=== PATIENT | female | born 1945 | race Caucasian/White ===

== ENCOUNTER 2019-05-06 22:38 | Inpatient (IN) | payer OTHER ==
[2019-05-06 23:04] VITALS: BMI 22.8
[2019-05-06] MEDS ORDERED: HALOPERIDOL LACTATE 5 MG/ML IM ONE (23:24)
[2019-05-06] MEDS ORDERED: HALOPERIDOL LACTATE 5 MG/ML ONE (23:24)
[2019-05-06] MEDS ORDERED: LORazepam 2 MG/ML SDV VIAL ONE (23:25)
[2019-05-06 23:57] LABS: BASO % 0.1 % (0-2.0); EOS % 0.5 % (0-4.5); HEMATOCRIT 25.8 % (32.4-45.2); HEMOGLOBIN 8.6 GM/dL (10.7-15.3); LYMPH % 16.7 % (8-40); MCH 33.7 pg (25.7-33.7); MCHC 33.3 g/dl (32.0-36.0); MEAN CELL VOLUME 101.2 fl (80-96); MEAN PLT VOLUME 10.2 fl (7.5-11.1); NEUT % 72.7 % (42.8-82.8); PLATELET COUNT 208 K/MM3 (134-434); RBC 2.55 M/mm3 (3.60-5.2); RDW 13.7 % (11.6-15.6); WHITE BLOOD COUNT 7.9 K/mm3 (4.0-10.0)
[2019-05-07 00:10] LABS: INR 1.05 (0.83-1.09); PROTHROMBIN TIME (PATIENT) 12.4 SEC (9.7-13.0)
[2019-05-07 00:12] LABS: ACTIVATED PTT 35.3 SECONDS (25.2-36.5)
[2019-05-07 00:19] LABS: ALBUMIN 2.9 g/dl (3.4-5.0); BILIRUBIN,TOTAL 0.8 mg/dL (0.2-1); BLOOD UREA NITROGEN 30.8 mg/dL (7-18); CALCIUM 9.7 mg/dL (8.5-10.1); CREATININE 3.5 mg/dL (0.55-1.3); POTASSIUM 5.1 mmol/L (3.5-5.1); TOT PROT 6.5 g/dl (6.4-8.2)
[2019-05-07] MEDS ORDERED: MAGNESIUM SULF 50% (8.12 MEQ/2 ML-1 GM VIAL) IVPB ONE (01:11)
--- NOTE | 2019-05-07 01:26 | PDOC ---
Documentation entered by Mikie Bowie SCRIBE, acting as scribe for Hermelinda Ghosh MD. Hermelinda Ghosh MD: This documentation has been prepared by the Jamir menon Xhesika, SCRIBE, under my direction and personally reviewed by me in its entirety. I confirm that the documentation accurately reflects all work, treatment, procedures, and medical decision making performed by me. History of Present Illness - General Chief Complaint: Pain, Acute Stated Complaint: FALL History Source: Patient Exam Limitations: No Limitations - History of Present Illness Initial Comments: 05/06/19 22:49 The patient is a 74 year old female with a significant past medical history of HTN, COPD, bipolar, hearing loss, who presents to the ED from [facility] for back pain, R hip pain and R thigh pain s/p fall. As per [facility] patient was found on the floor by staff. Pt has fallen 3x in the past week. The patient is a poor historian and unable to contribute to history. The patient denies chest pain, shortness of breath, headache and dizziness. Denies fever, chills, cough, nausea, vomiting, diarrhea and constipation. Allergies: NKDA Past History - Past Medical History Allergies/Adverse Reactions: Allergies Allergy/AdvReac Type Severity Reaction Status Date / Time No Known Allergies Allergy Verified 05/06/19 23:06 Home Medications: Ambulatory Orders Albuterol Sulfate Inhaler - [Ventolin HFA Inhaler -] 1 puff IH QID 05/06/19 Amlodipine Besylate 5 mg PO DAILY 05/06/19 Aspirin 81 mg PO DAILY 05/06/19 Calcitriol [Calcitriol -] 0.25 mcg PO Q2D 05/06/19 Carvedilol [Coreg -] 12.5 mg PO BID 05/06/19 Fluoxetine HCl 60 mg PO DAILY 05/06/19 Lamotrigine [Lamictal] 200 mg PO DAILY 05/06/19 Olanzapine [Zyprexa -] 5 mg PO DAILY 05/06/19 Sodium Chloride [Nasadrops] 15 ml NS DAILY 05/06/19 Umeclidinium Brm/Vilanterol Tr [Anoro Ellipta 62.5-25 Mcg INH] 1 each IH DAILY 05/06/19 Rosuvastatin [Crestor -] 5 mg PO HS #30 tablet 05/10/19 Review of Systems - Review of Systems Able to Perform ROS?: No (unable to obtain ) Is the patient limited Icelandic proficient: No *Physical Exam - Vital Signs Last Vital Signs Temp Pulse Resp BP Pulse Ox 97.1 F L 61 20 166/52 L 97 05/06/19 22:52 05/06/19 22:52 05/06/19 22:52 05/06/19 22:52 05/06/19 22:52 - Physical Exam 05/06/19 23:05 GENERAL: Awake, alert, and oriented x1 HEAD: No signs of trauma NECK: Normal ROM, supple, no lymphadenopathy, JVD, or masses LUNGS: Breath sounds equal, clear to auscultation bilaterally. No wheezes, and no crackles HEART: + cystolic murmur. Regular rate and rhythm, normal S1 and S2, rubs or gallops ABDOMEN: Flat, Soft, nontender, normoactive bowel sounds. No guarding, no rebound. No masses EXTREMITIES: + lumbar discomfort. No back pain. Unable to lift legs. no edema. No clubbing or cyanosis. No cords, erythema. SKIN: Warm, Dry, normal turgor, no rashes or lesions noted. Neurologic: positive: Alert (poor historian. only knows her name ) ED Treatment Course - LABORATORY CBC & Chemistry Diagram: 05/10/19 07:15 05/10/19 07:15 - ADDITIONAL ORDERS Additional order review: Laboratory Results 05/06/19 05/06/19 05/06/19 23:39 23:39 23:39 PT with INR 12.40 INR 1.05 PTT (Actin FS) 35.3 Sodium 135 L Potassium 5.1 Chloride 105 Carbon Dioxide 23 Anion Gap 7 L BUN 30.8 H Creatinine 3.5 H Est GFR (CKD-EPI)AfAm 14.03 Est GFR (CKD-EPI)NonAf 12.11 Random Glucose 112 H Calcium 9.7 Total Bilirubin 0.8 AST 88 H ALT 44 Alkaline Phosphatase 246 H Creatine Kinase 232 H Creatine Kinase Index 1.3 CK-MB (CK-2) 3.1 Troponin I < 0.02 Total Protein 6.5 Albumin 2.9 L 05/06/19 23:39 RBC 2.55 L MCV 101.2 H MCHC 33.3 RDW 13.7 MPV 10.2 Neutrophils % 72.7 Lymphocytes % 16.7 Monocytes % 10.0 Eosinophils % 0.5 Basophils % 0.1 - RADIOLOGY Radiology Studies Ordered: Category Date Time Status CERVICAL SPINE CT W/O CONTR [CT] Stat CT Scan 05/07/19 00:[address] WITHOUT CONTRAST [CT] Stat CT Scan 05/07/19 00:01 Taken CHEST X-RAY PORTABLE* [RAD] Stat Radiology 05/07/19 00:01 Taken HIP & PELVIS-RIGHT [RAD] Stat Radiology 05/07/19 00:01 Taken - Medications Given in the ED: ED Medications Discontinued Medications Generic Name Dose Route Start Last Admin Trade Name Freq PRN Reason Stop Dose Admin Haloperidol 5 mg 05/06/19 23:24 05/06/19 23:35 Haldol Injection (Fast Acting) - IM 05/06/19 23:25 5 mg ONCE ONE Administration Lorazepam 2 mg 05/06/19 23:23 05/06/19 23:35 Ativan Injection - IM 05/06/19 23:24 2 mg ONCE ONE Administration Medical Decision Making - Medical Decision Making 05/07/19 01:19 74 yo female BIBA from [facility] after being found on the floor. She is a poor historian but alert and conversant pt had c/o right femur pain, xray ordered and no femur fracture was seen pt is anemia and so stool hemoccult obtained And it was negative 05/07/19 01:53 CAT scan of the head - showed a mild right frontal scalp edema without skull fracture or intracranial hemorrhage CAT scan cervical spine - is negative for fracture or prevertebral soft tissue swelling, degenerative changes in C2-C4 Chest x-ray shows chronic interstitial lung disease UA is negative Troponin is negative Review of her chemistry shows a creatinine of 3.5 and in her papers from [facility] states that she has chronic kidney disease 05/07/19 02:16 05/07/19 02:19 Plan patient was signed out to Dr. Alexis team for admission to OBS telemetry Discharge - Discharge Information Problems reviewed: Yes Clinical Impression/Diagnosis: CKD (chronic kidney disease) Qualifiers: Chronic kidney disease stage: unspecified stage Qualified Code(s): N18.9 - Chronic kidney disease, unspecified Back pain Qualifiers: Back pain location: back pain in other location Chronicity: unspecified Qualified Code(s): M54.89 - Other dorsalgia HTN (hypertension) Qualifiers: Hypertension type: unspecified Qualified Code(s): I10 - Essential (primary) hypertension Condition: Stable Disposition: HOME - Follow up/Referral - Patient Discharge Instructions - Post Discharge Activity
[2019-05-07] MEDS ORDERED: MAGNESIUM 1GM/D5W - 1 GM/100 ML IVPB IVPB ONE (01:31)
[2019-05-07 01:39] LABS: EPI CELLS 5.3 /HPF (0-5/HPF); HYALINE CASTS 6 /lpf (0-8); PH,URINE 5.5 (5.0-8.0); URINE APPEARANCE CLEAR; URINE BACTERIA 0.5 /hpf (NEGATIVE); URINE BILIRUBIN NEGATIVE (NEGATIVE); URINE COLOR YELLOW; URINE GLUCOSE (UA) NEGATIVE (NEGATIVE); URINE KETONE NEGATIVE (NEGATIVE); URINE LEUK ESTERASE NEGATIVE (NEGATIVE); URINE NITRITE NEGATIVE (NEGATIVE); URINE PROTEIN 1+ (NEGATIVE); URINE RBC 1 /hpf (0-4); URINE WBC 2 /hpf (0-5)
--- NOTE | 2019-05-07 03:25 | PN ---
Teaching Attending Note Name of Resident: Vilma Rangel ATTENDING PHYSICIAN STATEMENT I saw and evaluated the patient. I reviewed the resident's note and discussed the case with the resident. I agree with the resident's findings and plan as documented. SUBJECTIVE: 74 yo female BIBA from [facility] after being found on the floor. Was initially complaining of right femur pain, patient is a poor historian but is Awake and alert. OBJECTIVE: Last Vital Signs Temp Pulse Resp BP Pulse Ox 97.1 F L 61 20 166/52 L 97 05/06/19 22:52 05/06/19 22:52 05/06/19 22:52 05/06/19 22:52 05/06/19 22:52 GENERAL: Well developed, well nourished. Awake and alert. No acute distress. HEENT: Normocephalic, atraumatic. PERRLA, EOMI. No conjunctival pallor. Sclera are non- icteric. Moist mucous membranes. Oropharynx is clear. NECK: Supple. Full ROM. No JVD. Carotid pulses 2+ and symmetric, without bruits. No thyromegaly. No lymphadenopathy. CARDIOVASCULAR: Regular rate and rhythm. No murmurs, rubs, or gallops. Distal pulses are 2+ and symmetric. PULMONARY: No evidence of respiratory distress. Lungs clear to auscultation bilaterally. No wheezing, rales or rhonchi. ABDOMINAL: Soft. Non-tender. Non-distended. No rebound or guarding. No organomegaly. Normoactive bowel sounds. MUSCULOSKELETAL Normal range of motion at all joints. No bony deformities or tenderness. No CVA tenderness. EXTREMITIES: Bilateral lower extremity edema, Exquisite tenderness to palpation of right thigh SKIN: Warm and dry. Normal capillary refill. No rashes. No jaundice. PSYCHIATRIC: Cooperative. Good eye contact. Appropriate mood and affect. Abnormal Lab Results 05/06/19 05/06/19 05/06/19 23:39 23:39 23:39 RBC 2.55 L Hgb 8.6 L Hct 25.8 L MCV 101.2 H Sodium 135 L Anion Gap 7 L BUN 30.8 H Creatinine 3.5 H Random Glucose 112 H AST 88 H Alkaline Phosphatase 246 H Creatine Kinase 232 H Albumin 2.9 L Urine Protein Urine Blood 05/07/19 01:25 RBC Hgb Hct MCV Sodium Anion Gap BUN Creatinine Random Glucose AST Alkaline Phosphatase Creatine Kinase Albumin Urine Protein 1+ H Urine Blood 1+ H Imaging studies were reviewed CT of the head - showed a mild right frontal scalp edema without skull fracture or intracranial hemorrhage CT of cervical spine - is negative for fracture or prevertebral soft tissue swelling, degenerative changes in C2-C4 Chest x-ray was reviewed by me, showed overpenetration, severe osteoporotic changes, possible interstitial chronic changes ASSESSMENT AND PLAN: 74-year-old woman status post fall with right frontal scalp edema, no fractures appreciated suspect possible syncope. First time in this hospital. Telemetry observation Fall precautions Bedrest follow-up official imaging reads Pain control with Tylenol Transthoracic echo Physical therapy evaluation Check orthostatics pelvic ct To rule out fracture of right femur Lower extremity Doppler ultrasound to rule out DVT given swelling #JEREMÍAS versus CKDno prior renal parameters for comparison. CK was mildly elevated and do not suspect significant rhabdo. Renal sonogram Avoid nephrotoxins I's and O's Daily weights IV fluid hydration #Severe macrocytic anemia TSH Vitamin B12 Iron studies Ferritin Red blood smear #Transaminitis Liver sonogram Hepatitis B and hepatitis C serologies DVT prophylaxisSCDs
--- NOTE | 2019-05-07 03:52 | HP ---
CHIEF COMPLAINT: right femur pain s/p fall PCP: Dr Iyer HISTORY OF PRESENT ILLNESS: Pt is uncooperative and only moans to pain on palpation. History is as per ED notes 74 y/o female with a significant past medical history of HTN, COPD, bipolar, hearing loss, who presents to the ED from [facility] for back pain, R hip pain and R thigh pain s/p fall. As per [place] patient was found on the floor by staff. Pt has fallen 3x in the past week. The patient is a poor historian and unable to contribute to history ER course was notable for: (1)CBC with anemia 8.6/25.8 MCV 101.2, CMP BUN 30.8/cr 3.5 PT/INR 12.4/1.05, AST 88 ALP 246 CK 232 albumin 2.9 (2) UA neg, FOBT neg, Haloperidol and ativan (3) CT of the head - showed a mild right frontal scalp edema without skull fracture or intracranial hemorrhage CT of cervical spine - is negative for fracture or prevertebral soft tissue swelling, degenerative changes in C2-C4 all Xray from [facility] [employer] [facility] negative for acute fracture. Recent Travel: unobtainable PAST MEDICAL HISTORY: as above PAST SURGICAL HISTORY: unobtainable Social History:unobtainable Allergies No Known Allergies Allergy (Verified 05/06/19 23:06) HOME MEDICATIONS: Home Medications Medication Instructions Recorded Acetaminophen 650 mg PO QID PRN 05/06/19 Albuterol Sulfate Inhaler - 1 - 2 inh PO Q4H 05/06/19 [Ventolin Hfa Inhaler -] Albuterol Sulfate Inhaler - 1 puff IH QID 05/06/19 [Ventolin Hfa Inhaler -] Amlodipine Besylate 5 mg PO DAILY 05/06/19 Aspirin 81 mg PO DAILY 05/06/19 Calcitriol [Rocaltrol -] 0.25 mcg PO Q2D 05/06/19 Carvedilol [Coreg -] 12.5 mg PO BID 05/06/19 Fluoxetine HCl 60 mg PO DAILY 05/06/19 Lamotrigine [Lamictal] 200 mg PO DAILY 05/06/19 Olanzapine [Zyprexa -] 5 mg PO DAILY 05/06/19 Rosuvastatin Calcium [Crestor] 5 mg PO DAILY 05/06/19 Sodium Chloride [Nasadrops] 15 ml NS DAILY 05/06/19 Umeclidinium Brm/Vilanterol Tr 1 each IH DAILY 05/06/19 [Anoro Ellipta 62.5-25 Mcg INH] REVIEW OF SYSTEMS CONSTITUTIONAL: Absent: fever, chills, diaphoresis, generalized weakness, malaise, loss of appetite, weight change PHYSICAL EXAMINATION Vital Signs - 24 hr 05/06/19 22:52 Temperature 97.1 F L Pulse Rate 61 Respiratory 20 Rate Blood Pressure 166/52 L O2 Sat by Pulse 97 Oximetry (%) GENERAL: in mod distress. somnolent on H&P intake HEAD: Normal with no signs of trauma. EYES: sclera anicteric, conjunctiva clear. No lid lag. NECK: Normal range of motion, supple without lymphadenopathy, JVD. LUNGS: Breath sounds equal, clear to auscultation bilaterally. No wheezes, and no crackles. No accessory muscle use. HEART: Regular rate and rhythm, normal S1 and S2 with systolic 3/6 murmur in aortic and pulmonary region. ABDOMEN: Soft, nontender, not distended, normoactive bowel sounds, no guarding, no rebound, umbilical hernia near surgical ex lap scar . No hepatomegaly or splenomegaly. MUSCULOSKELETAL: Normal range of motion at all joints except in R hip with tenderness over right hip and thigh. No bony deformities or leg length discrepancy . No CVA tenderness. pain elicited on log role test. UPPER EXTREMITIES: 2+ pulses, warm, well-perfused. No cyanosis. No clubbing. No peripheral edema. LOWER EXTREMITIES: 2+ pulses, warm, well-perfused. No calf tenderness. No peripheral edema. SKIN: Warm, dry, normal turgor, bruise below right knee. Laboratory Results - last 24 hr 05/06/19 05/06/19 05/06/19 23:39 23:39 23:39 WBC 7.9 RBC 2.55 L Hgb 8.6 L Hct 25.8 L MCV 101.2 H MCH 33.7 MCHC 33.3 RDW 13.7 Plt Count 208 MPV 10.2 Absolute Neuts (auto) 5.8 Neutrophils % 72.7 Lymphocytes % 16.7 Monocytes % 10.0 Eosinophils % 0.5 Basophils % 0.1 Nucleated RBC % 0 PT with INR 12.40 INR 1.05 PTT (Actin FS) 35.3 Sodium 135 L Potassium 5.1 Chloride 105 Carbon Dioxide 23 Anion Gap 7 L BUN 30.8 H Creatinine 3.5 H Est GFR (CKD-EPI)AfAm 14.03 Est GFR (CKD-EPI)NonAf 12.11 Random Glucose 112 H Calcium 9.7 Total Bilirubin 0.8 AST 88 H ALT 44 Alkaline Phosphatase 246 H Creatine Kinase Creatine Kinase Index CK-MB (CK-2) Troponin I Total Protein 6.5 Albumin 2.9 L Urine Color Urine Appearance Urine pH Ur Specific [place] Urine Protein Urine Glucose (UA) Urine Ketones Urine Blood Urine Nitrite Urine Bilirubin Urine Urobilinogen Ur Leukocyte Esterase Urine WBC (Auto) Urine RBC (Auto) Urine Casts (Auto) U Epithel Cells (Auto) U Sm Round Cell (Auto) Urine Bacteria (Auto) Stool Occult Blood 05/06/19 05/07/19 05/07/19 23:39 01:19 01:25 WBC RBC Hgb Hct MCV MCH MCHC RDW Plt Count MPV Absolute Neuts (auto) Neutrophils % Lymphocytes % Monocytes % Eosinophils % Basophils % Nucleated RBC % PT with INR INR PTT (Actin FS) Sodium Potassium Chloride Carbon Dioxide Anion Gap BUN Creatinine Est GFR (CKD-EPI)AfAm Est GFR (CKD-EPI)NonAf Random Glucose Calcium Total Bilirubin AST ALT Alkaline Phosphatase Creatine Kinase 232 H Creatine Kinase Index 1.3 CK-MB (CK-2) 3.1 Troponin I < 0.02 Total Protein Albumin Urine Color Yellow Urine Appearance Clear Urine pH 5.5 Ur Specific [place] 1.015 Urine Protein 1+ H Urine Glucose (UA) Negative Urine Ketones Negative Urine Blood 1+ H Urine Nitrite Negative Urine Bilirubin Negative Urine Urobilinogen 1.0 Ur Leukocyte Esterase Negative Urine WBC (Auto) 2 Urine RBC (Auto) 1 Urine Casts (Auto) 6 U Epithel Cells (Auto) 5.3 U Sm Round Cell (Auto) None Urine Bacteria (Auto) 0.5 Stool Occult Blood Negative ASSESSMENT/PLAN: 74 y/o female with a significant past medical history of HTN, COPD, bipolar, hearing loss, who presents to the ED from [facility] for back pain, R hip pain and R thigh pain s/p fall with evidence of right frontal scalp edema but no fractures possibly due to syncopal episode. Syncope Telemetry observation carotid U/S echo orthostatics vs Fall precautions Bedrest Fall possibly due to syncope Xray negative for gross fracture pt cont to moan on palpation and manipulation of R hip pain on log role test f/u official reads tylenol 650 prn for pain control Physical therapy evaluation Anemia with Macrocytosis FOBT neg basic anemia work up iron studies with ferritin retic count peripheral blood smear B12 and folate TSH JEREMÍAS versus CKD or acute on chronic? pt has mild Ck elevation at 232 per chart pt has history of CKD but no baseline Renal U/S NS@ 100 Avoid nephrotoxins I's and O's Daily weights R leg swelling duplex U/s to r/o DVT Transaminitis Liver U/S Hepatitis B and hepatitis C serologies monitor with cmp DVT ppx SCDs Visit type - Emergency Visit Emergency Visit: Yes ED Registration Date: 05/07/19 Care time: The patient presented to the Emergency Department on the above date and was hospitalized for further evaluation of their emergent condition. - New Patient This patient is new to me today: Yes Date on this admission: 05/07/19 - Critical Care Critical Care patient: No ATTENDING PHYSICIAN STATEMENT I saw and evaluated the patient. I reviewed the resident's note and discussed the case with the resident. I agree with the resident's findings and plan as documented. SUBJECTIVE: OBJECTIVE: ASSESSMENT AND PLAN:
[2019-05-07] MEDS: SODIUM CHLORIDE 1,000 ML IV SCH (04:49)
[2019-05-07] MEDS ORDERED: HALOPERIDOL DECANOATE 100 MG/ML IM ONE (06:28)
[2019-05-07] MEDS ORDERED: HALOPERIDOL LACTATE 5 MG/ML IM ONE (07:00)
[2019-05-07 07:09] LABS: BASO % 0.4 % (0-2.0); EOS % 0.9 % (0-4.5); HEMATOCRIT 24.5 % (32.4-45.2); HEMOGLOBIN 8.2 GM/dL (10.7-15.3); LYMPH % 22.3 % (8-40); MCH 33.7 pg (25.7-33.7); MCHC 33.6 g/dl (32.0-36.0); MEAN CELL VOLUME 100.5 fl (80-96); MEAN PLT VOLUME 10.2 fl (7.5-11.1); NEUT % 65.4 % (42.8-82.8); PLATELET COUNT 181 K/MM3 (134-434); RBC 2.44 M/mm3 (3.60-5.2); RDW 13.2 % (11.6-15.6); WHITE BLOOD COUNT 6.6 K/mm3 (4.0-10.0)
[2019-05-07] MEDS ORDERED: HALOPERIDOL LACTATE 5 MG/ML ONE (07:32)
[2019-05-07 07:52] LABS: ALBUMIN 2.8 g/dl (3.4-5.0); BILIRUBIN,TOTAL 0.8 mg/dL (0.2-1); BLOOD UREA NITROGEN 29.2 mg/dL (7-18); CALCIUM 9.7 mg/dL (8.5-10.1); CREATININE 3.4 mg/dL (0.55-1.3); MAGNESIUM 2.6 mg/dL (1.8-2.4); POTASSIUM 4.9 mmol/L (3.5-5.1); TOT PROT 6.2 g/dl (6.4-8.2)
--- NOTE | 2019-05-07 12:26 | EKG ---
Test Reason : Blood Pressure : / mmHG Vent. Rate : 064 BPM Atrial Rate : 064 BPM P-R Int : 142 ms QRS Dur : 092 ms QT Int : 500 ms P-R-T Axes : 056 007 060 degrees QTc Int : 515 ms NORMAL SINUS RHYTHM NONSPECIFIC ST AND T WAVE ABNORMALITY PROLONGED QT ABNORMAL ECG NO PREVIOUS ECGS AVAILABLE Confirmed by EDUARDO BEY MD ([id number]) on 05/07/2019 12:26:31 PM Referred By: Confirmed By:EDUARDO BEY MD
--- NOTE | 2019-05-07 12:52 | PN ---
Teaching Attending Note Name of Resident: Letty Clement ATTENDING PHYSICIAN STATEMENT I saw and evaluated the patient. I reviewed the resident's note and discussed the case with the resident. I agree with the resident's findings and plan as documented. SUBJECTIVE: Feels well. No chest pain/palpitations/dyspnea/lightheadedness. No fever/chills. OBJECTIVE: Afebrile, Hemodynamically Stable. Last Vital Signs Temp Pulse Resp BP Pulse Ox 97.1 F L 68 18 165/74 95 05/07/19 06:15 05/07/19 06:15 05/07/19 06:15 05/07/19 06:15 05/07/19 06:38 HEENT - Atraumatic Normocephalic. Heart - S1, S2 soft SM Lungs - clear to auscultation Abdomen- soft, non-tender. Bowel Sounds normal. Extremities - No edema, no calf tenderness. Neuro - AAO x 2. Tone/Power normal all extremities. Laboratory Results - last 24 hr 05/06/19 05/06/19 05/06/19 23:39 23:39 23:39 WBC RBC Hgb Hct MCV MCH MCHC RDW Plt Count MPV Absolute Neuts (auto) Neutrophils % Lymphocytes % Monocytes % Eosinophils % Basophils % Nucleated RBC % Retic Count PT with INR 12.40 INR 1.05 PTT (Actin FS) 35.3 Sodium 135 L Potassium 5.1 Chloride 105 Carbon Dioxide 23 Anion Gap 7 L BUN 30.8 H Creatinine 3.5 H Est GFR (CKD-EPI)AfAm 14.03 Est GFR (CKD-EPI)NonAf 12.11 Random Glucose 112 H Calcium 9.7 Phosphorus Magnesium Iron TIBC Iron Saturation Unsaturated IBC Ferritin Total Bilirubin 0.8 GGT AST 88 H ALT 44 Alkaline Phosphatase 246 H Creatine Kinase Creatine Kinase Index CK-MB (CK-2) Troponin I Total Protein 6.5 Albumin 2.9 L Vitamin B12 Serum Folate TSH Free T4 Urine Color Urine Appearance Urine pH Ur Specific [place] Urine Protein Urine Glucose (UA) Urine Ketones Urine Blood Urine Nitrite Urine Bilirubin Urine Urobilinogen Ur Leukocyte Esterase Urine WBC (Auto) Urine RBC (Auto) Urine Casts (Auto) U Epithel Cells (Auto) U Sm Round Cell (Auto) Urine Bacteria (Auto) Stool Occult Blood Blood Type O POSITIVE Antibody Screen Negative 05/06/19 05/06/19 05/07/19 23:39 23:39 01:19 WBC 7.9 RBC 2.55 L Hgb 8.6 L Hct 25.8 L MCV 101.2 H MCH 33.7 MCHC 33.3 RDW 13.7 Plt Count 208 MPV 10.2 Absolute Neuts (auto) 5.8 Neutrophils % 72.7 Lymphocytes % 16.7 Monocytes % 10.0 Eosinophils % 0.5 Basophils % 0.1 Nucleated RBC % 0 Retic Count PT with INR INR PTT (Actin FS) Sodium Potassium Chloride Carbon Dioxide Anion Gap BUN Creatinine Est GFR (CKD-EPI)AfAm Est GFR (CKD-EPI)NonAf Random Glucose Calcium Phosphorus Magnesium Iron TIBC Iron Saturation Unsaturated IBC Ferritin Total Bilirubin GGT AST ALT Alkaline Phosphatase Creatine Kinase 232 H Creatine Kinase Index 1.3 CK-MB (CK-2) 3.1 Troponin I < 0.02 Total Protein Albumin Vitamin B12 Serum Folate TSH Free T4 Urine Color Urine Appearance Urine pH Ur Specific [place] Urine Protein Urine Glucose (UA) Urine Ketones Urine Blood Urine Nitrite Urine Bilirubin Urine Urobilinogen Ur Leukocyte Esterase Urine WBC (Auto) Urine RBC (Auto) Urine Casts (Auto) U Epithel Cells (Auto) U Sm Round Cell (Auto) Urine Bacteria (Auto) Stool Occult Blood Negative Blood Type Antibody Screen 05/07/19 05/07/19 05/07/19 01:25 06:44 06:44 WBC 6.6 RBC 2.44 L Hgb 8.2 L Hct 24.5 L MCV 100.5 H MCH 33.7 MCHC 33.6 RDW 13.2 Plt Count 181 MPV 10.2 Absolute Neuts (auto) 4.3 Neutrophils % 65.4 Lymphocytes % 22.3 D Monocytes % 11.0 H Eosinophils % 0.9 Basophils % 0.4 D Nucleated RBC % 0 Retic Count PT with INR INR PTT (Actin FS) Sodium Potassium Chloride Carbon Dioxide Anion Gap BUN Creatinine Est GFR (CKD-EPI)AfAm Est GFR (CKD-EPI)NonAf Random Glucose Calcium Phosphorus Magnesium Iron TIBC Iron Saturation Unsaturated IBC Ferritin Total Bilirubin GGT AST ALT Alkaline Phosphatase Creatine Kinase Creatine Kinase Index CK-MB (CK-2) Troponin I Total Protein Albumin Vitamin B12 Serum Folate TSH Free T4 Urine Color Yellow Urine Appearance Clear Urine pH 5.5 Ur Specific [place] 1.015 Urine Protein 1+ H Urine Glucose (UA) Negative Urine Ketones Negative Urine Blood 1+ H Urine Nitrite Negative Urine Bilirubin Negative Urine Urobilinogen 1.0 Ur Leukocyte Esterase Negative Urine WBC (Auto) 2 Urine RBC (Auto) 1 Urine Casts (Auto) 6 U Epithel Cells (Auto) 5.3 U Sm Round Cell (Auto) None Urine Bacteria (Auto) 0.5 Stool Occult Blood Blood Type O POSITIVE Antibody Screen 05/07/19 05/07/19 05/07/19 06:44 06:44 06:44 WBC RBC Hgb Hct MCV MCH MCHC RDW Plt Count MPV Absolute Neuts (auto) Neutrophils % Lymphocytes % Monocytes % Eosinophils % Basophils % Nucleated RBC % Retic Count 3.33 H PT with INR INR PTT (Actin FS) Sodium 136 Potassium 4.9 Chloride 106 Carbon Dioxide 21 Anion Gap 9 BUN 29.2 H Creatinine 3.4 H Est GFR (CKD-EPI)AfAm 14.53 Est GFR (CKD-EPI)NonAf 12.54 Random Glucose 104 Calcium 9.7 Phosphorus 3.0 Magnesium 2.6 H Iron 62 TIBC 188 L Iron Saturation 32 Unsaturated IBC 126 L Ferritin 224.4 Total Bilirubin 0.8 GGT 514 H AST 81 H ALT 39 Alkaline Phosphatase 222 H Creatine Kinase Creatine Kinase Index CK-MB (CK-2) Troponin I Total Protein 6.2 L Albumin 2.8 L Vitamin B12 832 Serum Folate 6 TSH 6.56 H Free T4 1.33 Urine Color Urine Appearance Urine pH Ur Specific [place] Urine Protein Urine Glucose (UA) Urine Ketones Urine Blood Urine Nitrite Urine Bilirubin Urine Urobilinogen Ur Leukocyte Esterase Urine WBC (Auto) Urine RBC (Auto) Urine Casts (Auto) U Epithel Cells (Auto) U Sm Round Cell (Auto) Urine Bacteria (Auto) Stool Occult Blood Blood Type Antibody Screen Current Medications Generic Name Dose Route Start Last Admin Trade Name Freq PRN Reason Stop Dose Admin Sodium Chloride 1,000 mls @ 100 mls/hr 05/07/19 04:45 05/07/19 04:49 Normal Saline - IV 100 mls/hr [facility]IR [facility] Administration Home Medications Medication Instructions Recorded Acetaminophen 650 mg PO QID PRN 05/06/19 Albuterol Sulfate Inhaler - 1 - 2 inh PO Q4H 05/06/19 [Ventolin Hfa Inhaler -] Albuterol Sulfate Inhaler - 1 puff IH QID 05/06/19 [Ventolin Hfa Inhaler -] Amlodipine Besylate 5 mg PO DAILY 05/06/19 Aspirin 81 mg PO DAILY 05/06/19 Calcitriol [Rocaltrol -] 0.25 mcg PO Q2D 05/06/19 Carvedilol [Coreg -] 12.5 mg PO BID 05/06/19 Fluoxetine HCl 60 mg PO DAILY 05/06/19 Lamotrigine [Lamictal] 200 mg PO DAILY 05/06/19 Olanzapine [Zyprexa -] 5 mg PO DAILY 05/06/19 Rosuvastatin Calcium [Crestor] 10 mg PO DAILY 05/06/19 Sodium Chloride [Nasadrops] 15 ml NS DAILY 05/06/19 Umeclidinium Brm/Vilanterol Tr 1 each IH DAILY 05/06/19 [Anoro Ellipta 62.5-25 Mcg INH] ASSESSMENT AND PLAN: 74 year old female resident at [facility], HTN, COPD, Bipolar, hearing impairment, brought to ED after being found on the floor, poor historian , unable to recount iván-collapse events/symptoms, complains of R hip/leg pain. CT of the head - showed a mild right frontal scalp edema without skull fracture or intracranial hemorrhage CT of cervical spine - is negative for fracture or prevertebral soft tissue swelling, degenerative changes in C2-C4 CXR - no acute findings. Hip/Pelvis Xray - sclerotic density R intertrochanteric area 1. Syncope vs Fall ECG - NSR, QTc 515 Telemonitoring Orthostatic Vitals Echo Carotid Duplex PT 2. Sclerotic density R intertrochanteric area ?etiology CT Pelvis to exclude fracture. 3. JEREMÍAS vs CKD 3 - likely CKD. Review of external/PCP medical record pending to determine acuity/baseline Creat. Renal US pending. 4. Hepatic Dysfunction (elevated AST, GGT), Macrocytic Anemia - B12/Folate non- deficient. ?Alcohol Hx Abdominal US and Hepatitis panel pending. 5. HTN - continue Norvasc, Coreg. 6. COPD - Stable, no evidence of deocmpensation. On AnoroEllipta, Albuterol PRN. 7. Bipolar Disorder - Continue Olanzapine, Lamotrigine, Fluoxetine. 8. HLD - Will decrease Statin dose due to elevated LFTs. DVT Px - Heparin SQ.
--- NOTE | 2019-05-07 13:28 | ECHO ---
Name: ANU SALAZAR Exam:Adult Echocardiogram Study Date: 05/07/2019 10:32 AM Age: 74 yrs Height: 62 in Weight: 125 lb BSA: 1.6 m2 MMode/2D Measurements & Calculations IVSd: 0.98 cm Ao root diam: 2.0 cm LVIDd: 3.5 cm LA dimension: 2.8 cm LVIDs: 2.5 cm LVPWd: 0.95 cm LVPWs: 1.1 cm EDV(Teich): 50.5 ml ESV(Teich): 22.4 ml LVOT diam: 1.6 cm LAV (MOD-bp): 76.0 ml TAPSE: 2.0 cm RV S [place]: 14.8 cm/sec Doppler Measurements & Calculations MV V2 max: 128.2 cm/sec MV E max estevan: 77.0 cm/sec MV max P.6 mmHg MV A max estevan: 52.3 cm/sec MV V2 mean: 62.6 cm/sec MV E/A: 1.5 MV mean P.9 mmHg MV dec time: 0.23 sec MV V2 VTI: 31.5 cm Ao V2 max: 131.4 cm/sec LV V1 max P.6 mmHg Ao max P.9 mmHg LV V1 max: 80.0 cm/sec CAROLYNN(V,D): 1.2 cm2 MR max estevan: 624.2 cm/sec PA V2 max: 82.8 cm/sec MR max P.4 mmHg PA max P.7 mmHg Med Peak E' [place]: 4.7 cm/sec Med E/e': 16.5 Lat Peak E' [place]: 7.4 cm/sec Lat E/e': 10.4 Procedure A two-dimensional transthoracic echocardiogram with color flow and Doppler was performed. The study w as technically difficult with many images being suboptimal in quality. Left Ventricle The left ventricular size, thickness and function are normal. The left ventricular ejection fraction is normal. Left Ventricular Filling pattern is normal for age. Regional wall motion abnormalities cannot be excluded due to limited visualization. Right Ventricle The right ventricle is normal in size and function. Atria Normal left and right atrial size and function. Mitral Valve There is moderate mitral valve thickening. There is moderate mitral annular calcification. Calcified mitral apparatus. There is no mitral valve stenosis. There is moderate to severe mitral regurgitation. Tricuspid Valve The tricuspid valve is not well visualized. There is no tricuspid stenosis. There was insufficient TR detected to calculate RV systolic pressure. Aortic Valve The aortic valve is not well visualized. No hemodynamically significant valvular aortic stenosis. No aortic regurgitation is present. Pulmonic Valve The pulmonic valve is not well visualized. Great Vessels The aortic root is normal size. Pericardium/Pleura There is no pericardial effusion. Interpretation Summary The left ventricular size, thickness and function are normal The study was technically difficult with many images being suboptimal in quality. There is moderate to severe mitral regurgitation. There is moderate mitral valve thickening. There is moderate mitral annular calcification. Calcified mitral apparatus. There was insufficient TR detected to calculate RV systolic pressure. The left ventricular ejection fraction is normal. Regional wall motion abnormalities cannot be excluded due to limited visualization. Left Ventricular Filling pattern is normal for age. MD Eran Echols 05/07/2019 01:28 PM
--- NOTE | 2019-05-07 14:24 | PN ---
Physical Exam: SUBJECTIVE: Patient seen and examined. Unable to contribute to history as patient received Haldol overnight. Only mumbling words, poor historian. As per assisted living home patient has had multiple falls over the last two weeks after she was admitted there. She has been taken to [facility] for her previous falls and has been sent back as no acute problems were found. At baseline patient is able to verbalize commands, questions, and follow commands slowly. She is normally oriented x3. Assisted living home did not have any records regarding her baseline kidney function. OBJECTIVE: Vital Signs Period Temp Pulse Resp BP Sys/Marcelo Pulse Ox Last 24 Hr 97.1 F-97.1 F 61-68 18-20 165-166/52-74 95-97 GENERAL: somnolent, mumbling words HEAD: Normal with no signs of trauma. EYES: PERRL ENT: dry mucous membranes NECK: Trachea midline, supple LUNGS: Breath sounds equal, clear to auscultation bilaterally, no wheezes, no crackles, no accessory muscle use. HEART: Regular rate and rhythm, S1, S2 without murmur, rub or gallop. ABDOMEN: Soft, nontender, nondistended, normoactive bowel sounds, no guarding, no rebound MSK: Moderate tenderness to palpation over right hip EXTREMITIES: 2+ pulses, warm, well-perfused, no edema. NEUROLOGICAL: unable to asses. AAOx1. arousable to verbal and physical stimuli SKIN: Warm, dry. Multiple small healing scabbed over abrasions noted on lower and upper extremities. Laboratory Results - last 24 hr 05/06/19 05/06/19 05/06/19 23:39 23:39 23:39 WBC RBC Hgb Hct MCV MCH MCHC RDW Plt Count MPV Absolute Neuts (auto) Neutrophils % Lymphocytes % Monocytes % Eosinophils % Basophils % Nucleated RBC % Retic Count PT with INR 12.40 INR 1.05 PTT (Actin FS) 35.3 Sodium 135 L Potassium 5.1 Chloride 105 Carbon Dioxide 23 Anion Gap 7 L BUN 30.8 H Creatinine 3.5 H Est GFR (CKD-EPI)AfAm 14.03 Est GFR (CKD-EPI)NonAf 12.11 Random Glucose 112 H Calcium 9.7 Phosphorus Magnesium Iron TIBC Iron Saturation Unsaturated IBC Ferritin Total Bilirubin 0.8 GGT AST 88 H ALT 44 Alkaline Phosphatase 246 H Creatine Kinase Creatine Kinase Index CK-MB (CK-2) Troponin I Total Protein 6.5 Albumin 2.9 L Vitamin B12 Serum Folate TSH Free T4 Urine Color Urine Appearance Urine pH Ur Specific [place] Urine Protein Urine Glucose (UA) Urine Ketones Urine Blood Urine Nitrite Urine Bilirubin Urine Urobilinogen Ur Leukocyte Esterase Urine WBC (Auto) Urine RBC (Auto) Urine Casts (Auto) U Epithel Cells (Auto) U Sm Round Cell (Auto) Urine Bacteria (Auto) Stool Occult Blood Blood Type O POSITIVE Antibody Screen Negative 05/06/19 05/06/19 05/07/19 23:39 23:39 01:19 WBC 7.9 RBC 2.55 L Hgb 8.6 L Hct 25.8 L MCV 101.2 H MCH 33.7 MCHC 33.3 RDW 13.7 Plt Count 208 MPV 10.2 Absolute Neuts (auto) 5.8 Neutrophils % 72.7 Lymphocytes % 16.7 Monocytes % 10.0 Eosinophils % 0.5 Basophils % 0.1 Nucleated RBC % 0 Retic Count PT with INR INR PTT (Actin FS) Sodium Potassium Chloride Carbon Dioxide Anion Gap BUN Creatinine Est GFR (CKD-EPI)AfAm Est GFR (CKD-EPI)NonAf Random Glucose Calcium Phosphorus Magnesium Iron TIBC Iron Saturation Unsaturated IBC Ferritin Total Bilirubin GGT AST ALT Alkaline Phosphatase Creatine Kinase 232 H Creatine Kinase Index 1.3 CK-MB (CK-2) 3.1 Troponin I < 0.02 Total Protein Albumin Vitamin B12 Serum Folate TSH Free T4 Urine Color Urine Appearance Urine pH Ur Specific [place] Urine Protein Urine Glucose (UA) Urine Ketones Urine Blood Urine Nitrite Urine Bilirubin Urine Urobilinogen Ur Leukocyte Esterase Urine WBC (Auto) Urine RBC (Auto) Urine Casts (Auto) U Epithel Cells (Auto) U Sm Round Cell (Auto) Urine Bacteria (Auto) Stool Occult Blood Negative Blood Type Antibody Screen 05/07/19 05/07/19 05/07/19 01:25 06:44 06:44 WBC 6.6 RBC 2.44 L Hgb 8.2 L Hct 24.5 L MCV 100.5 H MCH 33.7 MCHC 33.6 RDW 13.2 Plt Count 181 MPV 10.2 Absolute Neuts (auto) 4.3 Neutrophils % 65.4 Lymphocytes % 22.3 D Monocytes % 11.0 H Eosinophils % 0.9 Basophils % 0.4 D Nucleated RBC % 0 Retic Count PT with INR INR PTT (Actin FS) Sodium Potassium Chloride Carbon Dioxide Anion Gap BUN Creatinine Est GFR (CKD-EPI)AfAm Est GFR (CKD-EPI)NonAf Random Glucose Calcium Phosphorus Magnesium Iron TIBC Iron Saturation Unsaturated IBC Ferritin Total Bilirubin GGT AST ALT Alkaline Phosphatase Creatine Kinase Creatine Kinase Index CK-MB (CK-2) Troponin I Total Protein Albumin Vitamin B12 Serum Folate TSH Free T4 Urine Color Yellow Urine Appearance Clear Urine pH 5.5 Ur Specific [place] 1.015 Urine Protein 1+ H Urine Glucose (UA) Negative Urine Ketones Negative Urine Blood 1+ H Urine Nitrite Negative Urine Bilirubin Negative Urine Urobilinogen 1.0 Ur Leukocyte Esterase Negative Urine WBC (Auto) 2 Urine RBC (Auto) 1 Urine Casts (Auto) 6 U Epithel Cells (Auto) 5.3 U Sm Round Cell (Auto) None Urine Bacteria (Auto) 0.5 Stool Occult Blood Blood Type O POSITIVE Antibody Screen 05/07/19 05/07/19 05/07/19 06:44 06:44 06:44 WBC RBC Hgb Hct MCV MCH MCHC RDW Plt Count MPV Absolute Neuts (auto) Neutrophils % Lymphocytes % Monocytes % Eosinophils % Basophils % Nucleated RBC % Retic Count 3.33 H PT with INR INR PTT (Actin FS) Sodium 136 Potassium 4.9 Chloride 106 Carbon Dioxide 21 Anion Gap 9 BUN 29.2 H Creatinine 3.4 H Est GFR (CKD-EPI)AfAm 14.53 Est GFR (CKD-EPI)NonAf 12.54 Random Glucose 104 Calcium 9.7 Phosphorus 3.0 Magnesium 2.6 H Iron 62 TIBC 188 L Iron Saturation 32 Unsaturated IBC 126 L Ferritin 224.4 Total Bilirubin 0.8 GGT 514 H AST 81 H ALT 39 Alkaline Phosphatase 222 H Creatine Kinase Creatine Kinase Index CK-MB (CK-2) Troponin I Total Protein 6.2 L Albumin 2.8 L Vitamin B12 832 Serum Folate 6 TSH 6.56 H Free T4 1.33 Urine Color Urine Appearance Urine pH Ur Specific [place] Urine Protein Urine Glucose (UA) Urine Ketones Urine Blood Urine Nitrite Urine Bilirubin Urine Urobilinogen Ur Leukocyte Esterase Urine WBC (Auto) Urine RBC (Auto) Urine Casts (Auto) U Epithel Cells (Auto) U Sm Round Cell (Auto) Urine Bacteria (Auto) Stool Occult Blood Blood Type Antibody Screen Active Medications Generic Name Dose Route Start Last Admin Trade Name Freq PRN Reason Stop Dose Admin Heparin Sodium (Porcine) 5,000 unit 05/07/19 13:15 Heparin - SQ BID LONNY Sodium Chloride 1,000 mls @ 100 mls/hr 05/07/19 04:45 05/07/19 04:49 Normal Saline - IV 100 mls/hr ASDIR LONNY Administration ASSESSMENT/PLAN: 74 y/o/f with PMHx of HTN, COPD, bipolar disorder, hearing loss who presented to the ED from [facility] for back pain, R hip pain and R thigh pain s/p fall with evidence of right frontal scalp edema. Patient has had multiple falls over the last two weeks as per assisted living facility. #Syncope vs. Fall - Carotid U/S - Small to moderate-size plaques at the left common carotid bifurcation with 50-69% stenosis, There are also moderate-size plaques with calcifications at the right common carotid bifurcation bulb with 50-69% stenosis. - Echo - no significant abnormal pathology - Orthostatic vitals ordered - Fall precautions - Physical therapy - CT head - mild right frontal scalp edema without skull fracture or intracranial hemorrhage - CT cervical spine - negative for fx. degenerative changes - CXR - no acute findings - Hip/Pelvis Xray - sclerotic density R intertrochanteric area, CT pelvis and lower extremity to r/o sclerotic density - CT abd/pelvis and lower extremity - Small to moderate-size anterior pelvic wall hernia containing bowel loops without gross. No gross fracture or dislocation is identified. #JEREMÍAS vs CKD 3 - likely CKD - Renal U/S pending read - unable to confirm patient's baseline BUN/Cr from assisted living home, will attempt to contact PCP #Hepatic Dysfunction - elevated AST, GGT - Macrocytic Anemia - B12/Folate non-deficient. - will attempt to confirm alcohol use history once patient is more cooperative - Abd U/S read pending - Hepatitis panel tests pending #HTN - continue home meds #COPD - continue home meds - On AnoroEllipta, Albuterol PRN. #Bipolar Disorder - Continue Olanzapine, Lamotrigine, Fluoxetine. #HLD - Will decrease Statin dose due to elevated LFTs. #Prophylaxis - Heparin #FEN - Sodium controlled diet - NS @100mls/hr #Disposition - admitted to Tele Visit type - Emergency Visit Emergency Visit: Yes ED Registration Date: 05/07/19 Care time: The patient presented to the Emergency Department on the above date and was hospitalized for further evaluation of their emergent condition. - New Patient This patient is new to me today: Yes Date on this admission: 05/07/19 - Critical Care Critical Care patient: No ATTENDING PHYSICIAN STATEMENT I saw and evaluated the patient. I reviewed the resident's note and discussed the case with the resident. I agree with the resident's findings and plan as documented. SUBJECTIVE: OBJECTIVE: ASSESSMENT AND PLAN:
--- NOTE | 2019-05-07 15:13 | EKG ---
Test Reason : Blood Pressure : / mmHG Vent. Rate : 071 BPM Atrial Rate : 071 BPM P-R Int : 140 ms QRS Dur : 092 ms QT Int : 452 ms P-R-T Axes : 081 035 074 degrees QTc Int : 491 ms NORMAL SINUS RHYTHM NONSPECIFIC ST ABNORMALITY PROLONGED QT ABNORMAL ECG WHEN COMPARED WITH ECG OF 07-MAY-2019 01:09, NO SIGNIFICANT CHANGE WAS FOUND Confirmed by MAIDA BARR, EDUARDO ([id number]) on 05/07/2019 3:13:30 PM Referred By: Guru ROLON Confirmed By:EDUARDO BEY MD
[2019-05-07] MEDS ORDERED: HEPARIN NA (PORCINE) 5,000 UNITS/ML 1ML VIAL ONE (16:09)
[2019-05-07] MEDS ORDERED: ALBUTEROL SO4 8 GM HFA INHALER IH PRN (16:15)
[2019-05-07] MEDS: amLODIPine BESYLATE 5 MG TABLET (FP) PO SCH (18:53)
[2019-05-07] MEDS: HEPARIN NA (PORCINE) 5,000 UNITS/ML 1ML VIAL SQ SCH ×2 (18:53→22:23)
[2019-05-07] MEDS ORDERED: ROSUVASTATIN CA 10 MG TABLET (FP) PO SCH (22:00)
[2019-05-07] MEDS: CARVEDILOL 12.5 MG TABLET (FP) PO SCH (22:23)
[2019-05-08] MEDS: SODIUM CHLORIDE 1,000 ML IV SCH (06:00)
[2019-05-08 07:04] LABS: HEMOGLOBIN 7.1 GM/dL (10.7-15.3); MCH 34.3 pg (25.7-33.7); MCHC 34.1 g/dl (32.0-36.0); MEAN CELL VOLUME 100.6 fl (80-96); PLATELET COUNT 161 K/MM3 (134-434); RBC 2.08 M/mm3 (3.60-5.2); RDW 13.5 % (11.6-15.6); WHITE BLOOD COUNT 5.8 K/mm3 (4.0-10.0)
[2019-05-08 07:42] LABS: ALBUMIN 2.4 g/dl (3.4-5.0); BILIRUBIN,TOTAL 0.9 mg/dL (0.2-1); BLOOD UREA NITROGEN 28.4 mg/dL (7-18); CALCIUM 8.9 mg/dL (8.5-10.1); MAGNESIUM 2.3 mg/dL (1.8-2.4); POTASSIUM 4.5 mmol/L (3.5-5.1); TOT PROT 5.4 g/dl (6.4-8.2)
[2019-05-08] MEDS ORDERED: PT OWN MED DRAWER 7, Y5N ONE (09:19)
--- NOTE | 2019-05-08 09:43 | PN ---
Progress Note (short form) - Note Progress Note: VAscular Surgery Carotid doppler images reviewed. Right ICA stenosis at best of 50%. No need for any surgery at this time. Medical management. Would not fix unless the lesion is greater than 80% Franki Scott DO
[2019-05-08] MEDS: amLODIPine BESYLATE 5 MG TABLET (FP) PO SCH (10:14)
[2019-05-08] MEDS: CARVEDILOL 12.5 MG TABLET (FP) PO SCH ×2 (10:14→22:44)
[2019-05-08] MEDS: FLUoxetine HCL 20 MG CAPSULE (FP) PO SCH (10:15)
[2019-05-08] MEDS: ASPIRIN 81 MG CHEWABLE TABLETS PO SCH (10:15)
--- NOTE | 2019-05-08 10:32 | CONSULT ---
Consultation: Heme /Oncology Consult REQUESTING PROVIDER: Dr Joyce Franco CONSULT REQUEST: We have been asked to medically evaluate this patient for ( Macrocytic anemia ). HISTORY OF PRESENT ILLNESS: Pt is uncooperative and only moans to pain on palpation. History is as per ED notes 74 y/o female with a significant past medical history of HTN, COPD, bipolar, hearing loss, who presents to the ED from [facility] for back pain, R hip pain and R thigh pain s/p fall. As per ND patient was found on the floor by staff. Pt has fallen 3x in the past week. The patient is a poor historian and unable to contribute to history Recent Travel: unobtainable PAST MEDICAL HISTORY: as above PAST SURGICAL HISTORY: unobtainable Social History:unobtainable REVIEW OF SYSTEMS: right hip pain PHYSICAL EXAMINATION Vital Signs - 24 hr 05/07/19 05/07/19 05/07/19 16:54 16:55 17:30 Temperature 99.5 F Pulse Rate 68 63 Pulse Rate [ 68 Left side Sitting] Pulse Rate [ 69 Left side Supine] Respiratory 18 20 Rate Blood Pressure 150/74 142/62 Blood Pressure 150/74 [Left side Sitting] Blood Pressure 156/70 [Left side Supine] O2 Sat by Pulse 96 Oximetry (%) 05/07/19 05/07/19 05/08/19 20:05 21:00 02:00 Temperature 98.5 F 98.7 F Pulse Rate 65 62 Pulse Rate [ Left side Sitting] Pulse Rate [ Left side Supine] Respiratory 20 20 Rate Blood Pressure 142/40 L 122/49 L Blood Pressure [Left side Sitting] Blood Pressure [Left side Supine] O2 Sat by Pulse 96 Oximetry (%) 05/08/19 06:00 Temperature 98.5 F Pulse Rate 67 Pulse Rate [ Left side Sitting] Pulse Rate [ Left side Supine] Respiratory 20 Rate Blood Pressure 152/57 L Blood Pressure [Left side Sitting] Blood Pressure [Left side Supine] O2 Sat by Pulse Oximetry (%) HEENT -NC/AT Heart - S1, S2 soft SM Lungs -CTA B/L Abdomen - soft, non-tender. Bowel Sounds normal. Extremities - No edema, no calf tenderness.right hip tenderness , LROM due to pain on right leg Neuro - AAO x 3. Tone/Power normal all extremities. Laboratory Results - last 24 hr 05/07/19 05/07/1905/08/19 06:44 07:40 06:35 WBC 5.8 RBC 2.08 L Hgb 7.1 L Hct 21.0 L MCV 100.6 H MCH 34.3 H MCHC 34.1 RDW 13.5 Plt Count 161 MPV 10.0 Sodium 136 Potassium 4.9 Chloride 106 Carbon Dioxide 21 Anion Gap 9 BUN 29.2 H Creatinine 3.4 H Est GFR (CKD-EPI)AfAm 14.53 Est GFR (CKD-EPI)NonAf 12.54 Random Glucose 104 Calcium 9.7 Phosphorus 3.0 Magnesium 2.6 H Total Bilirubin 0.8 AST 81 H ALT 39 Alkaline Phosphatase 222 H Total Protein 6.2 L Albumin 2.8 L Serum Folate 6 TSH 6.56 H Free T4 1.33 Hep B Core IgM Ab Negative Hepatitis Be Antigen Negative 05/08/19 06:35 WBC RBC Hgb Hct MCV MCH MCHC RDW Plt Count MPV Sodium 138 Potassium 4.5 Chloride 111 H Carbon Dioxide 18 L Anion Gap 8 BUN 28.4 H Creatinine 3.0 H Est GFR (CKD-EPI)AfAm 16.91 Est GFR (CKD-EPI)NonAf 14.59 Random Glucose 74 Calcium 8.9 Phosphorus Magnesium 2.3 Total Bilirubin 0.9 AST 82 H ALT 35 Alkaline Phosphatase 196 H Total Protein 5.4 L Albumin 2.4 L Serum Folate TSH Free T4 Hep B Core IgM Ab Hepatitis Be Antigen Active Medications Generic Name Dose Route Start Last Admin Trade Name Freq PRN Reason Stop Dose Admin Albuterol Sulfate 2 puff 05/07/19 16:15 Ventolin Hfa Inhaler - IH Q4H PRN SHORTNESS OF BREATH Amlodipine Besylate 5 mg 05/07/19 16:15 05/08/19 10:14 Norvasc - PO 5 mg DAILY LONNY Administration Aspirin 81 mg 05/08/19 10:00 05/08/19 10:15 Asa - PO 81 mg DAILY LONNY Administration Calcitriol 0.25 mcg 05/09/19 10:00 Rocaltrol - PO Q2D LONNY Carvedilol 12.5 mg 05/07/19 22:00 05/08/19 10:14 Coreg - PO 12.5 mg BID LONNY Administration Fluoxetine HCl 60 mg 05/08/19 10:00 05/08/19 10:15 Prozac - PO 60 mg DAILY LONNY Administration Heparin Sodium (Porcine) 5,000 unit 05/07/19 13:15 05/07/19 22:23 Heparin - SQ 5,000 unit BID LONNY Administration Sodium Chloride 1,000 mls @ 100 mls/hr 05/07/19 04:45 05/08/19 06:00 Normal Saline - IV 100 mls/hr ASDIR LONNY Administration Lamotrigine 200 mg 05/08/19 10:00 Lamictal - PO DAILY LONNY Olanzapine 5 mg 05/08/19 10:00 Zyprexa - PO DAILY LONNY Rosuvastatin Calcium 5 mg 05/08/19 22:00 Crestor - PO HS LONNY Umeclidinium/Vilanterol 1 puff 05/08/19 10:00 Anoro Ellipta 62.5-25 Mcg Inh IH DAILY LONNY CBC, BMP 05/08/19 06:35 05/08/19 06:35 ASSESSMENT/PLAN: # Anemia likely due to CKD # Macrocytosis R.O MDS order flow cytometry and fish mixed picture likely due to medication SE Fluxetine r vs hypothyroidism vs anemia of CKD can nor R.O alcoholic history * MCV 100.6, MCHC 34 * FA and B12 within normal limits * Iron studies with ferritin 224, iron 62, TIBC 188, * occult blood negative , will benift from colonoscopy * reticulocytes elevated 3.33 might reflect hemolytic anemia * monitor renal function * avoid nephrotoxic agents # transaminities AST 81 , ALT 35 likely meds SE olanzapin and lamotrogin , monitor labs , US with fatty liver # Elevated TSH , repeat out pt after acute phase , as hypothyroidism might be in the differential # Syncope due to dehydration vs olanzapine SE , fall precautions , Dispo: We will continue to follow the patient. Thank you for this consultative opportunity. Visit type - Emergency Visit Emergency Visit: Yes ED Registration Date: 05/07/19 Care time: The patient presented to the Emergency Department on the above date and was hospitalized for further evaluation of their emergent condition. - New Patient This patient is new to me today: Yes Date on this admission: 05/08/19 - Critical Care Critical Care patient: No ATTENDING PHYSICIAN STATEMENT I saw and evaluated the patient. I reviewed the resident's note and discussed the case with the resident. I agree with the resident's findings and plan as documented. SUBJECTIVE: OBJECTIVE: ASSESSMENT AND PLAN:
[2019-05-08] MEDS: UMECLIDINIUM/VILANTEROL (ANORO) 62.5/25 MCG INHALER IH SCH (10:51)
[2019-05-08] MEDS: HEPARIN NA (PORCINE) 5,000 UNITS/ML 1ML VIAL SQ SCH ×2 (10:52→22:44)
[2019-05-08] MEDS: OLANZapine 5 MG TABLET PO SCH (10:53)
--- NOTE | 2019-05-08 11:44 | PN ---
Teaching Attending Note Name of Resident: Letty Clement ATTENDING PHYSICIAN STATEMENT I saw and evaluated the patient. I reviewed the resident's note and discussed the case with the resident. I agree with the resident's findings and plan as documented. SUBJECTIVE: Feels well. No chest pain/palpitations/dyspnea/lightheadedness. No fever/chills. OBJECTIVE: Afebrile, Hemodynamically Stable. SpO2 96% on 2L via NC Last Vital Signs Temp Pulse Resp BP Pulse Ox 98.5 F 67 20 152/57 L 96 05/08/19 06:00 05/08/19 06:00 05/08/19 06:00 05/08/19 06:00 05/07/19 21:00 HEENT - Atraumatic Normocephalic. Heart - S1, S2 soft SM Lungs - clear to auscultation Abdomen - soft, non-tender. Bowel Sounds normal. Extremities - No edema, no calf tenderness. Neuro - AAO x 3. Tone/Power normal all extremities. Laboratory Results - last 24 hr 05/07/19 05/08/19 05/08/19 07:40 06:35 06:35 WBC 5.8 RBC 2.08 L Hgb 7.1 L Hct 21.0 L MCV 100.6 H MCH 34.3 H MCHC 34.1 RDW 13.5 Plt Count 161 MPV 10.0 Sodium 138 Potassium 4.5 Chloride 111 H Carbon Dioxide 18 L Anion Gap 8 BUN 28.4 H Creatinine 3.0 H Est GFR (CKD-EPI)AfAm 16.91 Est GFR (CKD-EPI)NonAf 14.59 Random Glucose 74 Calcium 8.9 Magnesium 2.3 Total Bilirubin 0.9 AST 82 H ALT 35 Alkaline Phosphatase 196 H Total Protein 5.4 L Albumin 2.4 L Hep B Core IgM Ab Negative Hepatitis Be Antigen Negative Current Medications Generic Name Dose Route Start Last Admin Trade Name Freq PRN Reason Stop Dose Admin Albuterol Sulfate 2 puff 05/07/19 16:15 Ventolin Hfa Inhaler - IH Q4H PRN SHORTNESS OF BREATH Amlodipine Besylate 5 mg 05/07/19 16:15 05/08/19 10:14 Norvasc - PO 5 mg DAILY LONNY Administration Aspirin 81 mg 05/08/19 10:00 05/08/19 10:15 Asa - PO 81 mg DAILY LONNY Administration Calcitriol 0.25 mcg 05/09/19 10:00 Rocaltrol - PO Q2D LONNY Carvedilol 12.5 mg 05/07/19 22:00 05/08/19 10:14 Coreg - PO 12.5 mg BID LONNY Administration Fluoxetine HCl 60 mg 05/08/19 10:00 05/08/19 10:15 Prozac - PO 60 mg DAILY LONNY Administration Heparin Sodium (Porcine) 5,000 unit 05/07/19 13:15 05/08/19 10:52 Heparin - SQ 5,000 unit BID LONNY Administration Sodium Chloride 1,000 mls @ 100 mls/hr 05/07/19 04:45 05/08/19 06:00 Normal Saline - IV 100 mls/hr ASDIR LONNY Administration Lamotrigine 200 mg 05/08/19 10:00 05/08/19 10:52 Lamictal - PO 200 mg DAILY LONNY Administration Olanzapine 5 mg 05/08/19 10:00 05/08/19 10:53 Zyprexa - PO 5 mg DAILY LONNY Administration Rosuvastatin Calcium 5 mg 05/08/19 22:00 Crestor - PO HS LONNY Umeclidinium/Vilanterol 1 puff 05/08/19 10:00 05/08/19 10:51 Anoro Ellipta 62.5-25 Mcg Inh IH 1 puff DAILY LONNY Administration Home Medications Medication Instructions Recorded Acetaminophen 650 mg PO QID PRN 05/06/19 Albuterol Sulfate Inhaler - 1 - 2 inh PO Q4H 05/06/19 [Ventolin Hfa Inhaler -] Albuterol Sulfate Inhaler - 1 puff IH QID 05/06/19 [Ventolin Hfa Inhaler -] Amlodipine Besylate 5 mg PO DAILY 05/06/19 Aspirin 81 mg PO DAILY 05/06/19 Calcitriol [Rocaltrol -] 0.25 mcg PO Q2D 05/06/19 Carvedilol [Coreg -] 12.5 mg PO BID 05/06/19 Fluoxetine HCl 60 mg PO DAILY 05/06/19 Lamotrigine [Lamictal] 200 mg PO DAILY 05/06/19 Olanzapine [Zyprexa -] 5 mg PO DAILY 05/06/19 Rosuvastatin Calcium [Crestor] 10 mg PO DAILY 05/06/19 Sodium Chloride [Nasadrops] 15 ml NS DAILY 05/06/19 Umeclidinium Brm/Vilanterol Tr 1 each IH DAILY 05/06/19 [Anoro Ellipta 62.5-25 Mcg INH] ASSESSMENT AND PLAN: 74 year old female resident at [facility], HTN, COPD, Bipolar, hearing impairment, brought to ED after being found on the floor, poor historian , unable to recount iván-collapse events/symptoms, complains of R hip/leg pain. CT of the head - showed a mild right frontal scalp edema without skull fracture or intracranial hemorrhage CT of cervical spine - is negative for fracture or prevertebral soft tissue swelling, degenerative changes in C2-C4 CXR - no acute findings. Hip/Pelvis Xray - sclerotic density R intertrochanteric area 1. Syncope vs Fall ECG - NSR, QTc 515 ---> 491 Echo - LV EF Normal, severe MR. Carotid Duplex - shows some narrowing of carotids - evaluated by Vascular Sx - no need for intervention as narrowing < 50%. Orthostatic Vitals pending PT - may need placement if needs more than what can be provided at [facility]. 2. Sclerotic density R intertrochanteric area on XRay - not visualized on CT Pelvis/LEs. 3. JEREMÍAS on CKD 3 - Creat improving. Attempting to obtain medical records to determine baseline renal function. Renal US - Atrophic echogenic kidneys, L Renal cyst. 4. Hepatic Dysfunction (elevated AST, GGT), Macrocytic Anemia - B12/Folate non- deficient. Abdominal US - fatty liver. Hepatitis panel pending. 5. HTN - continue Norvasc, Coreg. 6. COPD - Stable, no evidence of decompensation. On AnoroEllipta, Albuterol PRN. 7. Bipolar Disorder - Continue Olanzapine, Lamotrigine, Fluoxetine. 8. HLD - Will decrease Statin dose due to elevated LFTs. 9. Macrocytic Anemia - etiology unclear. B12/folate non-deficient. ?sec to Liver disease. Iron 62/Ferritin 224/FOBT negative. Will consult Hematology for further Ix/work-up. DVT Px - Heparin SQ.
[2019-05-08 12:46] LABS: BASO % 0.1 % (0-2.0); EOS % 0.6 % (0-4.5); HEMATOCRIT 24.5 % (32.4-45.2); LYMPH % 13.2 % (8-40); MCH 33.5 pg (25.7-33.7); MCHC 32.7 g/dl (32.0-36.0); MEAN CELL VOLUME 102.2 fl (80-96); MEAN PLT VOLUME 10.3 fl (7.5-11.1); MONO % 9.3 % (3.8-10.2); NEUT % 76.8 % (42.8-82.8); PLATELET COUNT 170 K/MM3 (134-434); RDW 13.7 % (11.6-15.6); WHITE BLOOD COUNT 7.2 K/mm3 (4.0-10.0)
--- NOTE | 2019-05-08 14:43 | PN ---
Physical Exam: SUBJECTIVE: Patient seen and examined. Patient much more awake today. AAOx3. Asking for a cigarette. Patient unsure why she was brought to the hospital. Denies any pain. Denies dizziness, chest pain, SOB, abd pain. States she has a history of kidney disease. OBJECTIVE: Vital Signs Period Temp Pulse Resp BP Sys/Marcelo Pulse Ox Last 24 Hr 98 F-99.5 F 61-69 18-20 122-156/40-74 96-96 GENERAL: awake, alert, fully oriented HEAD: Normal with no signs of trauma. EYES: PERRL, EOMI ENT: dry mucous membranes NECK: Trachea midline, supple LUNGS: mild expiratory wheezing at the bases, no crackles, no accessory muscle use. HEART: RRR, S1, S2 normal ABDOMEN: Soft, nontender, nondistended, normoactive bowel sounds, no guarding, no rebound MSK: Moderate tenderness to palpation over right hip/femur. EXTREMITIES: 2+ pulses, warm, well-perfused, no edema. NEUROLOGICAL: Cranial nerves 2-12 intact. Normal sensation throughout. AAOx3 SKIN: Warm, dry. Multiple small healing scabbed over abrasions noted on lower and upper extremities. Laboratory Results - last 24 hr 05/07/19 05/08/19 05/08/19 07:40 06:35 06:35 WBC 5.8 RBC 2.08 L Hgb 7.1 L Hct 21.0 L MCV 100.6 H MCH 34.3 H MCHC 34.1 RDW 13.5 Plt Count 161 MPV 10.0 Absolute Neuts (auto) Neutrophils % Lymphocytes % Monocytes % Eosinophils % Basophils % Nucleated RBC % Sodium 138 Potassium 4.5 Chloride 111 H Carbon Dioxide 18 L Anion Gap 8 BUN 28.4 H Creatinine 3.0 H Est GFR (CKD-EPI)AfAm 16.91 Est GFR (CKD-EPI)NonAf 14.59 Random Glucose 74 Calcium 8.9 Magnesium 2.3 Total Bilirubin 0.9 AST 82 H ALT 35 Alkaline Phosphatase 196 H Total Protein 5.4 L Albumin 2.4 L Hep B Core IgM Ab Negative Hepatitis Be Antigen Negative 05/08/19 12:20 WBC 7.2 RBC 2.40 L Hgb 8.0 L Hct 24.5 L D MCV 102.2 H MCH 33.5 MCHC 32.7 RDW 13.7 Plt Count 170 MPV 10.3 Absolute Neuts (auto) 5.5 Neutrophils % 76.8 Lymphocytes % 13.2 D Monocytes % 9.3 Eosinophils % 0.6 Basophils % 0.1 Nucleated RBC % 0 Sodium Potassium Chloride Carbon Dioxide Anion Gap BUN Creatinine Est GFR (CKD-EPI)AfAm Est GFR (CKD-EPI)NonAf Random Glucose Calcium Magnesium Total Bilirubin AST ALT Alkaline Phosphatase Total Protein Albumin Hep B Core IgM Ab Hepatitis Be Antigen Active Medications Generic Name Dose Route Start Last Admin Trade Name Freq PRN Reason Stop Dose Admin Albuterol Sulfate 2 puff 05/07/19 16:15 Ventolin Hfa Inhaler - IH Q4H PRN SHORTNESS OF BREATH Amlodipine Besylate 5 mg 05/07/19 16:15 05/08/19 10:14 Norvasc - PO 5 mg DAILY LONNY Administration Aspirin 81 mg 05/08/19 10:00 05/08/19 10:15 Asa - PO 81 mg DAILY LONNY Administration Calcitriol 0.25 mcg 05/09/19 10:00 Rocaltrol - PO Q2D LONNY Carvedilol 12.5 mg 05/07/19 22:00 05/08/19 10:14 Coreg - PO 12.5 mg BID LONNY Administration Fluoxetine HCl 60 mg 05/08/19 10:00 05/08/19 10:15 Prozac - PO 60 mg DAILY LONNY Administration Heparin Sodium (Porcine) 5,000 unit 05/07/19 13:15 05/08/19 10:52 Heparin - SQ 5,000 unit BID LONNY Administration Sodium Chloride 1,000 mls @ 100 mls/hr 05/07/19 04:45 05/08/19 06:00 Normal Saline - IV 100 mls/hr ASDIR LONNY Administration Lamotrigine 200 mg 05/08/19 10:00 05/08/19 10:52 Lamictal - PO 200 mg DAILY LONNY Administration Olanzapine 5 mg 05/08/19 10:00 05/08/19 10:53 Zyprexa - PO 5 mg DAILY LONNY Administration Rosuvastatin Calcium 5 mg 05/08/19 22:00 Crestor - PO HS LONNY Umeclidinium/Vilanterol 1 puff 05/08/19 10:00 05/08/19 10:51 Anoro Ellipta 62.5-25 Mcg Inh IH 1 puff DAILY LONNY Administration ASSESSMENT/PLAN: 74 y/o/f with PMHx of HTN, COPD, bipolar disorder, hearing loss who presented to the ED from [facility] for back pain, R hip pain and R thigh pain s/p fall with evidence of right frontal scalp edema. Patient has had multiple falls over the last two weeks as per assisted living facility. #Syncope vs. Fall - Carotid U/S - Small to moderate-size plaques at the left common carotid bifurcation with 50-69% stenosis, There are also moderate-size plaques with calcifications at the right common carotid bifurcation bulb with 50-69% stenosis. - Vascular consulted for Carotid U/S findings - no need for surgery at this time. Continue medical management. Would not fix unless the lesion is greater than 80% as per surg - Echo - no significant abnormal pathology - Orthostatic vitals negative - Fall precautions - Physical therapy - CT head - mild right frontal scalp edema without skull fracture or intracranial hemorrhage - CT cervical spine - negative for fx. degenerative changes - CXR - no acute findings - Hip/Pelvis Xray - sclerotic density R intertrochanteric area, CT pelvis and lower extremity to r/o sclerotic density - CT abd/pelvis and lower extremity - Small to moderate-size anterior pelvic wall hernia containing bowel loops without gross. No gross fracture or dislocation is identified. #JEREMÍAS vs CKD 3 - likely CKD - Renal U/S - atrophic + echogenic kidneys consistent with medical renal disease - unable to confirm patient's baseline BUN/Cr from assisted living home, unable to contact PCP #Hepatic Dysfunction - elevated AST, GGT - Macrocytic Anemia - B12/Folate non-deficient - Heme Onc consulted for Macrocytic anemia. Appreciate recs - Abd U/S - atrophic kidneys, trace perihepatic fluid, minimal gallbladder wall thickening - Hepatitis panel tests pending #HTN - continue home meds #COPD - continue home meds - On AnoroEllipta, Albuterol PRN. #Bipolar Disorder - Continue Olanzapine, Lamotrigine, Fluoxetine. #HLD - Decreased statin dose due to increased LFTs #Prophylaxis - Heparin #FEN - Sodium controlled diet - NS @100mls/hr #Disposition - admitted to Tele Visit type - Emergency Visit Emergency Visit: Yes ED Registration Date: 05/07/19 Care time: The patient presented to the Emergency Department on the above date and was hospitalized for further evaluation of their emergent condition. - New Patient This patient is new to me today: No - Critical Care Critical Care patient: No ATTENDING PHYSICIAN STATEMENT I saw and evaluated the patient. I reviewed the resident's note and discussed the case with the resident. I agree with the resident's findings and plan as documented. SUBJECTIVE: OBJECTIVE: ASSESSMENT AND PLAN:
--- NOTE | 2019-05-08 16:34 | CON.CARD ---
Consult Consult Specialty:: Cardiology Referred by:: Medicine Reason for Consultation:: mitral regurgitation, prolonged QTc - History of Present Illness Chief Complaint: fall History of Present Illness: 74F h/o HTN, COPD, bipolar d/o p/w fall, back pain, hip pain. Fell three times a week prior to admission. Patient refusing to answer most questions, says she is fine and wants to go home. no chest pain, palps, dyspnea, dizziness - Alcohol/Substance Use Hx Alcohol Use: No - Smoking History Smoking history: Never smoked Have you smoked in the past 12 months: No Home Medications - Allergies Allergies/Adverse Reactions: Allergies Allergy/AdvReac Type Severity Reaction Status Date / Time No Known Allergies Allergy Verified 05/06/19 23:06 - Home Medications Home Medications: Ambulatory Orders Acetaminophen 650 mg PO QID PRN 05/06/19 Albuterol Sulfate Inhaler - [Ventolin Hfa Inhaler -] 1 - 2 inh PO Q4H 05/06/19 Albuterol Sulfate Inhaler - [Ventolin Hfa Inhaler -] 1 puff IH QID 05/06/19 Amlodipine Besylate 5 mg PO DAILY 05/06/19 Aspirin 81 mg PO DAILY 05/06/19 Calcitriol [Rocaltrol -] 0.25 mcg PO Q2D 05/06/19 Carvedilol [Coreg -] 12.5 mg PO BID 05/06/19 Fluoxetine HCl 60 mg PO DAILY 05/06/19 Lamotrigine [Lamictal] 200 mg PO DAILY 05/06/19 Olanzapine [Zyprexa -] 5 mg PO DAILY 05/06/19 Rosuvastatin Calcium [Crestor] 10 mg PO DAILY 05/06/19 Sodium Chloride [Nasadrops] 15 ml NS DAILY 05/06/19 Umeclidinium Brm/Vilanterol Tr [Anoro Ellipta 62.5-25 Mcg INH] 1 each IH DAILY 05/06/19 Family Medical History Family History: Unable to Obtain Review of Systems Unable to obtain ROS, reason: noncompliant with history Vital Signs: Vital Signs Temperature 98 F 05/08/19 10:00 Pulse Rate 58 L 05/08/19 14:00 Respiratory Rate 20 05/08/19 14:00 Blood Pressure 129/50 L 05/08/19 14:00 O2 Sat by Pulse Oximetry (%) 96 05/08/19 09:00 Constitutional: Yes: No Distress, Calm Eyes: Yes: Conjunctiva Clear, EOM Intact HENT: Yes: Atraumatic, Normocephalic Neck: Yes: Supple, Trachea Midline Respiratory: Yes: Regular, CTA Bilaterally Gastrointestinal: Yes: Normal Bowel Sounds, Soft Cardiovascular: Yes: Regular Rate and Rhythm JVD: No Heart Sounds: Yes: S1, S2 Edema: No Peripheral Pulses WNL: No (thrill LUE) Integumentary: No: Jaundice Neurological: Yes: Alert, Oriented Psychiatric: No: Agitated - Other Data Labs, Other Data: CBC, BMP 05/08/19 12:20 05/08/19 06:35 INR, PTT INR 1.05 (0.83-1.09) 05/06/19 23:39 Assessment/Plan EKG: sinus, prolonged QTc 491 ms, no ischemic changes echo 04/2019 tds, nl LV function,mod to severe MR, mod MAC, RWMA cannot be excluded, RV nl tele; sinus fall, syncope - pt not providing further hx - no events on tele - carotid stenosis on doppler, <50% - no intervention per vascular - check orthostatics - trop neg, no ischemic changes on EKG prolonged QTc - initially 515 ms, now improved 491 ms - avoid QT prolonging agents - maintain K>4, Mg >2 mitral regurgitation - moderate to severe MR on echo - denies chest pain, dyspnea - outpatient follow up CKD - per pt had dialysis access placed in the past, but no history of HD - monitor Cr HTN - stable on current meds, continue bipolar disorder - manage per primary anemia - heme consulted
--- NOTE | 2019-05-08 19:16 | PN ---
Teaching Attending Note Name of Resident: Addi Sanchez ATTENDING PHYSICIAN STATEMENT I saw and evaluated the patient. I reviewed the resident's note and discussed the case with the resident. I agree with the resident's findings and plan as documented. Pt seen and examined ASSESSMENT AND PLAN: Please see Dr. Sanchez note for details. 1) Flow cytometry an FISH PB to r/o MDS 2) Subclinical hypothyroidism may also be the cause 3) F/U outpt Hematology
[2019-05-08 22:09] LABS: HEP B CORE AB, TOT Negative (Negative)
[2019-05-08] MEDS: ROSUVASTATIN CA 5 MG TABLET (FP) PO SCH (22:44)
[2019-05-09 06:43] LABS: HEMATOCRIT 22.5 % (32.4-45.2); HEMOGLOBIN 7.5 GM/dL (10.7-15.3); MCH 33.8 pg (25.7-33.7); MCHC 33.4 g/dl (32.0-36.0); MEAN CELL VOLUME 101.2 fl (80-96); MEAN PLT VOLUME 10.1 fl (7.5-11.1); PLATELET COUNT 174 K/MM3 (134-434); RBC 2.22 M/mm3 (3.60-5.2); RDW 13.4 % (11.6-15.6); WHITE BLOOD COUNT 6.9 K/mm3 (4.0-10.0)
[2019-05-09 07:11] LABS: ALBUMIN 2.5 g/dl (3.4-5.0); BILIRUBIN,TOTAL 0.9 mg/dL (0.2-1); POTASSIUM 4.8 mmol/L (3.5-5.1); TOT PROT 5.9 g/dl (6.4-8.2)
--- NOTE | 2019-05-09 09:06 | PN ---
Progress Note, Physician Chief Complaint: denies CP or SOB TELE: NSR History of Present Illness: Mitral regurgitation - Current Medication List Current Medications: Active Medications Albuterol Sulfate (Ventolin Hfa Inhaler -) 2 puff IH Q4H PRN PRN Reason: SHORTNESS OF BREATH Amlodipine Besylate (Norvasc -) 5 mg PO DAILY [facility] Last Admin: 05/08/19 10:14 Dose: 5 mg Aspirin (Asa -) 81 mg PO DAILY [facility] Last Admin: 05/08/19 10:15 Dose: 81 mg Calcitriol (Rocaltrol -) 0.25 mcg PO Q2D [facility] Carvedilol (Coreg -) 12.5 mg PO BID [facility] Last Admin: 05/08/19 22:44 Dose: 12.5 mg Fluoxetine HCl (Prozac -) 60 mg PO DAILY [facility] Last Admin: 05/08/19 10:15 Dose: 60 mg Heparin Sodium (Porcine) (Heparin -) 5,000 unit SQ BID [facility] Last Admin: 05/08/19 22:44 Dose: 5,000 unit Sodium Chloride (Normal Saline -) 1,000 mls @ 100 mls/hr IV ASDIR [facility] Last Admin: 05/08/19 06:00 Dose: 100 mls/hr Lamotrigine (Lamictal -) 200 mg PO DAILY [facility] Last Admin: 05/08/19 10:52 Dose: 200 mg Olanzapine (Zyprexa -) 5 mg PO DAILY [facility] Last Admin: 05/08/19 10:53 Dose: 5 mg Rosuvastatin Calcium (Crestor -) 5 mg PO HS [facility] Last Admin: 05/08/19 22:44 Dose: 5 mg Umeclidinium/Vilanterol (Anoro Ellipta 62.5-25 Mcg Inh) 1 puff IH DAILY [facility] Last Admin: 05/08/19 10:51 Dose: 1 puff - Objective Vital Signs: Vital Signs Temperature 97.9 F 05/09/19 01:00 Pulse Rate 68 05/09/19 05:00 Respiratory Rate 20 05/09/19 05:00 Blood Pressure 137/56 L 05/09/19 05:00 O2 Sat by Pulse Oximetry (%) 91 L 05/08/19 20:57 Constitutional: Yes: No Distress Cardiovascular: Yes: Regular Rate and Rhythm, Murmur Respiratory: Yes: CTA Bilaterally Gastrointestinal: Yes: Soft (NT) Edema: No Neurological: Yes: Alert Labs: CBC, BMP 05/09/19 06:19 05/09/19 06:19 INR, PTT INR 1.05 (0.83-1.09) 05/06/19 23:39 Laboratory Tests 05/07/19 01:19 Stool Occult Blood Negative Assessment/Plan echo 04/2019 tds, nl LV function,mod to severe MR, mod MAC, RWMA cannot be excluded, RV nl tele; sinus fall, syncope - pt not providing further hx - no events on tele - carotid stenosis on doppler, <50% - no intervention per vascular - check orthostatics - trop neg, no ischemic changes on EKG prolonged QTc - initially 515 ms, now improved 491 ms - avoid QT prolonging agents - maintain K>4, Mg >2 mitral regurgitation - moderate to severe MR on echo - denies chest pain, dyspnea - outpatient follow up CKD - per pt had dialysis access placed in the past, but no history of HD - monitor Cr as per PMD HTN - stable on current meds, continue bipolar disorder - manage per primary anemia - heme consulted, as per Heme and PMD
[2019-05-09] MEDS ORDERED: PT OWN MED DRAWER 7, Y5N ONE (11:35)
[2019-05-09] MEDS: SODIUM CHLORIDE 1,000 ML IV SCH (11:48)
[2019-05-09] MEDS: CARVEDILOL 12.5 MG TABLET (FP) PO SCH ×2 (12:00→22:19)
[2019-05-09] MEDS: CALCITRIOL 0.25 MCG CAPSULE (FP) PO SCH (12:00)
[2019-05-09] MEDS: ASPIRIN 81 MG CHEWABLE TABLETS PO SCH (12:00)
[2019-05-09] MEDS: OLANZapine 5 MG TABLET PO SCH (12:00)
[2019-05-09] MEDS: HEPARIN NA (PORCINE) 5,000 UNITS/ML 1ML VIAL SQ SCH ×2 (12:00→22:19)
[2019-05-09] MEDS: UMECLIDINIUM/VILANTEROL (ANORO) 62.5/25 MCG INHALER IH SCH (12:01)
[2019-05-09] MEDS: FLUoxetine HCL 20 MG CAPSULE (FP) PO SCH (12:01)
[2019-05-09] MEDS: amLODIPine BESYLATE 5 MG TABLET (FP) PO SCH (12:01)
--- NOTE | 2019-05-09 13:31 | PN ---
Physical Exam: SUBJECTIVE: Patient seen and examined. Patient states she would like to be discharged but explained to her that she has multiple medical conditions requiring care at this time. No acute events overnight. OBJECTIVE: Vital Signs Period Temp Pulse Resp BP Sys/Marcelo Pulse Ox Last 24 Hr 97.9 F-98.4 F 58-68 20-20 129-139/50-62 91 GENERAL: awake, alert, fully oriented HEAD: Normal with no signs of trauma. EYES: EOMI, no scleral icterus ENT: dry mucous membranes NECK: Trachea midline, supple LUNGS: mild expiratory wheezing at the bases, no crackles, no accessory muscle use. HEART: RRR, S1, S2 normal ABDOMEN: Soft, nontender, nondistended, normoactive bowel sounds, no guarding, no rebound MSK: Mild tenderness to palpation over right hip/femur. EXTREMITIES: 2+ pulses, warm, well-perfused, no edema. NEUROLOGICAL: Normal sensation throughout. AAOx2 (self and place) SKIN: Warm, dry. Multiple small healing scabbed over abrasions noted on lower and upper extremities. Laboratory Results - last 24 hr 05/07/19 05/07/19 05/09/19 07:40 07:40 06:19 WBC 6.9 RBC 2.22 L Hgb 7.5 L Hct 22.5 L MCV 101.2 H MCH 33.8 H MCHC 33.4 RDW 13.4 Plt Count 174 MPV 10.1 Sodium Potassium Chloride Carbon Dioxide Anion Gap BUN Creatinine Est GFR (CKD-EPI)AfAm Est GFR (CKD-EPI)NonAf Random Glucose Calcium Total Bilirubin AST ALT Alkaline Phosphatase Total Protein Albumin Hep A IgM Ab Confirm Negative Hepatitis A Ab Total Negative Hep Bs Antigen Negative Hep Bs Antibody Non reactive Hep B Core Total Ab Negative Hep B Core IgM Ab Negative Hepatitis Be Antibody Negative Negative Hepatitis Be Antigen Negative 05/09/19 06:19 WBC RBC Hgb Hct MCV MCH MCHC RDW Plt Count MPV Sodium 137 Potassium 4.8 Chloride 111 H Carbon Dioxide 19 L Anion Gap 7 L BUN 24.0 H Creatinine 3.0 H Est GFR (CKD-EPI)AfAm 16.91 Est GFR (CKD-EPI)NonAf 14.59 Random Glucose 97 Calcium 9.0 Total Bilirubin 0.9 AST 101 H ALT 41 Alkaline Phosphatase 210 H Total Protein 5.9 L Albumin 2.5 L Hep A IgM Ab Confirm Hepatitis A Ab Total Hep Bs Antigen Hep Bs Antibody Hep B Core Total Ab Hep B Core IgM Ab Hepatitis Be Antibody Hepatitis Be Antigen Active Medications Generic Name Dose Route Start Last Admin Trade Name [place] PRN Reason Stop Dose Admin Albuterol Sulfate 2 puff 05/07/19 16:15 Ventolin Hfa Inhaler - IH Q4H PRN SHORTNESS OF BREATH Amlodipine Besylate 5 mg 05/07/19 16:15 05/09/19 12:01 Norvasc - PO 5 mg DAILY LONNY Administration Aspirin 81 mg 05/08/19 10:00 05/09/19 12:00 Asa - PO 81 mg DAILY LONNY Administration Calcitriol 0.25 mcg 05/09/19 10:00 05/09/19 12:00 Rocaltrol - PO 0.25 mcg Q2D LONNY Administration Carvedilol 12.5 mg 05/07/19 22:00 05/09/19 12:00 Coreg - PO 12.5 mg BID LONNY Administration Fluoxetine HCl 60 mg 05/08/19 10:00 05/09/19 12:01 Prozac - PO 60 mg DAILY LONNY Administration Heparin Sodium (Porcine) 5,000 unit 05/07/19 13:15 05/09/19 12:00 Heparin - SQ 5,000 unit BID LONNY Administration Sodium Chloride 1,000 mls @ 100 mls/hr 05/07/19 04:45 05/09/19 11:48 Normal Saline - IV 100 mls/hr ASDIR LONNY Administration Lamotrigine 200 mg 05/08/19 10:00 05/09/19 12:00 Lamictal - PO 200 mg DAILY LONNY Administration Olanzapine 5 mg 05/08/19 10:00 05/09/19 12:00 Zyprexa - PO 5 mg DAILY LONNY Administration Rosuvastatin Calcium 5 mg 05/08/19 22:00 05/08/19 22:44 Crestor - PO 5 mg HS LONNY Administration Umeclidinium/Vilanterol 1 puff 05/08/19 10:00 05/09/19 12:01 Anoro Ellipta 62.5-25 Mcg Inh IH 1 puff DAILY LONNY Administration ASSESSMENT/PLAN: 74 y/o/f with PMHx of HTN, COPD, bipolar disorder, hearing loss who presented to the ED from [facility] and assisted living [facility] for back pain, R hip pain and R thigh pain s/p fall with evidence of right frontal scalp edema. Patient has had multiple falls over the last two weeks as per assisted living facility. #Syncope vs. Fall - Carotid U/S - Small to moderate-size plaques at the left common carotid bifurcation with 50-69% stenosis, There are also moderate-size plaques with calcifications at the right common carotid bifurcation bulb with 50-69% stenosis. - Vascular consulted for Carotid U/S findings - no need for surgery at this time. Continue medical management. Would not fix unless the lesion is greater than 80% as per surg - Echo - severe Mitral regurg - Cardio recommending outpatient follow up - Orthostatic vitals negative - Fall precautions - Physical therapy - CT head - mild right frontal scalp edema without skull fracture or intracranial hemorrhage - CT cervical spine - negative for fx. degenerative changes - CXR - no acute findings - Hip/Pelvis Xray - sclerotic density R intertrochanteric area, CT pelvis and lower extremity to r/o sclerotic density - CT abd/pelvis and lower extremity - Small to moderate-size anterior pelvic wall hernia containing bowel loops without gross. No gross fracture or dislocation is identified. #JEREMÍAS vs CKD 3 - likely CKD - Renal U/S - atrophic + echogenic kidneys consistent with medical renal disease - unable to confirm patient's baseline BUN/Cr from assisted living home, unable to contact PCP #Hepatic Dysfunction - elevated AST, GGT - Macrocytic Anemia - B12/Folate non-deficient - Nephrology consulted for anemia, recs appreciated - Heme Onc consulted for Macrocytic anemia. Appreciate recs - recommend further out-patient work-up with Flow Cytometry/FISH - Abd U/S - atrophic kidneys, trace perihepatic fluid, minimal gallbladder wall thickening - Hepatitis panel tests pending #HTN - continue home meds #COPD - continue home meds - On AnoroEllipta, Albuterol PRN. #Bipolar Disorder - Continue Olanzapine, Lamotrigine, Fluoxetine. #HLD - Decreased statin dose due to increased LFTs #Prophylaxis - Heparin #FEN - Sodium controlled diet - NS @100mls/hr #Disposition - transfer to med surg, no tele events noted Visit type - Emergency Visit Emergency Visit: Yes ED Registration Date: 05/07/19 Care time: The patient presented to the Emergency Department on the above date and was hospitalized for further evaluation of their emergent condition. - New Patient This patient is new to me today: No - Critical Care Critical Care patient: No ATTENDING PHYSICIAN STATEMENT I saw and evaluated the patient. I reviewed the resident's note and discussed the case with the resident. I agree with the resident's findings and plan as documented. SUBJECTIVE: OBJECTIVE: ASSESSMENT AND PLAN:
--- NOTE | 2019-05-09 14:23 | PN ---
Teaching Attending Note Name of Resident: Letty Clement ATTENDING PHYSICIAN STATEMENT I saw and evaluated the patient. I reviewed the resident's note and discussed the case with the resident. I agree with the resident's findings and plan as documented. SUBJECTIVE: Feels well. No chest pain/palpitations/dyspnea/lightheadedness. No fever/chills. Wants to return home to AL facility. OBJECTIVE: Afebrile, Hemodynamically Stable. SpO2 96% on 2L via NC. Last Vital Signs Temp Pulse Resp BP Pulse Ox 97.9 F 68 20 137/56 L 91 L 05/09/19 01:00 05/09/19 05:00 05/09/19 05:00 05/09/19 05:00 05/08/19 20:57 Heart - S1, S2 soft SM Lungs - clear to auscultation Abdomen - soft, non-tender. Bowel Sounds normal. Extremities - No edema, no calf tenderness. Neuro - AAO x 2. Tone/Power normal all extremities. Laboratory Results - last 24 hr 05/07/19 05/07/19 05/09/19 07:40 07:40 06:19 WBC 6.9 RBC 2.22 L Hgb 7.5 L Hct 22.5 L MCV 101.2 H MCH 33.8 H MCHC 33.4 RDW 13.4 Plt Count 174 MPV 10.1 Sodium Potassium Chloride Carbon Dioxide Anion Gap BUN Creatinine Est GFR (CKD-EPI)AfAm Est GFR (CKD-EPI)NonAf Random Glucose Calcium Total Bilirubin AST ALT Alkaline Phosphatase Total Protein Albumin Hep A IgM Ab Confirm Negative Hepatitis A Ab Total Negative Hep Bs Antigen Negative Hep Bs Antibody Non reactive Hep B Core Total Ab Negative Hep B Core IgM Ab Negative Hepatitis Be Antibody Negative Negative Hepatitis Be Antigen Negative 05/09/19 06:19 WBC RBC Hgb Hct MCV MCH MCHC RDW Plt Count MPV Sodium 137 Potassium 4.8 Chloride 111 H Carbon Dioxide 19 L Anion Gap 7 L BUN 24.0 H Creatinine 3.0 H Est GFR (CKD-EPI)AfAm 16.91 Est GFR (CKD-EPI)NonAf 14.59 Random Glucose 97 Calcium 9.0 Total Bilirubin 0.9 AST 101 H ALT 41 Alkaline Phosphatase 210 H Total Protein 5.9 L Albumin 2.5 L Hep A IgM Ab Confirm Hepatitis A Ab Total Hep Bs Antigen Hep Bs Antibody Hep B Core Total Ab Hep B Core IgM Ab Hepatitis Be Antibody Hepatitis Be Antigen Current Medications Generic Name Dose Route Start Last Admin Trade Name Freq PRN Reason Stop Dose Admin Albuterol Sulfate 2 puff 05/07/19 16:15 Ventolin Hfa Inhaler - IH Q4H PRN SHORTNESS OF BREATH Amlodipine Besylate 5 mg 05/07/19 16:15 05/09/19 12:01 Norvasc - PO 5 mg DAILY LONNY Administration Aspirin 81 mg 05/08/19 10:00 05/09/19 12:00 Asa - PO 81 mg DAILY LONNY Administration Calcitriol 0.25 mcg 05/09/19 10:00 05/09/19 12:00 Rocaltrol - PO 0.25 mcg Q2D LONNY Administration Carvedilol 12.5 mg 05/07/19 22:00 05/09/19 12:00 Coreg - PO 12.5 mg BID LONNY Administration Fluoxetine HCl 60 mg 05/08/19 10:00 05/09/19 12:01 Prozac - PO 60 mg DAILY LONNY Administration Heparin Sodium (Porcine) 5,000 unit 05/07/19 13:15 05/09/19 12:00 Heparin - SQ 5,000 unit BID LONNY Administration Sodium Chloride 1,000 mls @ 100 mls/hr 05/07/19 04:45 05/09/19 11:48 Normal Saline - IV 100 mls/hr ASDIR LONNY Administration Lamotrigine 200 mg 05/08/19 10:00 05/09/19 12:00 Lamictal - PO 200 mg DAILY LONNY Administration Olanzapine 5 mg 05/08/19 10:00 05/09/19 12:00 Zyprexa - PO 5 mg DAILY LONNY Administration Rosuvastatin Calcium 5 mg 05/08/19 22:00 05/08/19 22:44 Crestor - PO 5 mg HS LONNY Administration Umeclidinium/Vilanterol 1 puff 05/08/19 10:00 05/09/19 12:01 Anoro Ellipta 62.5-25 Mcg Inh IH 1 puff DAILY LONNY Administration Home Medications Medication Instructions Recorded Acetaminophen 650 mg PO QID PRN 05/06/19 Albuterol Sulfate Inhaler - 1 - 2 inh PO Q4H 05/06/19 [Ventolin Hfa Inhaler -] Albuterol Sulfate Inhaler - 1 puff IH QID 05/06/19 [Ventolin Hfa Inhaler -] Amlodipine Besylate 5 mg PO DAILY 05/06/19 Aspirin 81 mg PO DAILY 05/06/19 Calcitriol [Rocaltrol -] 0.25 mcg PO Q2D 05/06/19 Carvedilol [Coreg -] 12.5 mg PO BID 05/06/19 Fluoxetine HCl 60 mg PO DAILY 05/06/19 Lamotrigine [Lamictal] 200 mg PO DAILY 05/06/19 Olanzapine [Zyprexa -] 5 mg PO DAILY 05/06/19 Rosuvastatin Calcium [Crestor] 10 mg PO DAILY 05/06/19 Sodium Chloride [Nasadrops] 15 ml NS DAILY 05/06/19 Umeclidinium Brm/Vilanterol Tr 1 each IH DAILY 05/06/19 [Anoro Ellipta 62.5-25 Mcg INH] ASSESSMENT AND PLAN: 74 year old female resident at [facility], HTN, COPD, Bipolar, hearing impairment, brought to ED after being found on the floor, poor historian , unable to recount iván-collapse events/symptoms, complains of R hip/leg pain. CT of the head - showed a mild right frontal scalp edema without skull fracture or intracranial hemorrhage CT of cervical spine - is negative for fracture or prevertebral soft tissue swelling, degenerative changes in C2-C4 CXR - no acute findings. Hip/Pelvis Xray - sclerotic density R intertrochanteric area 1. Syncope vs Fall ECG - NSR, QTc 515 ---> 491 Echo - LV EF Normal, severe MR. Carotid Duplex - shows some narrowing of carotids - evaluated by Vascular Sx - no need for intervention as narrowing < 50%. Orthostatic Vitals negative PT - may need placement if needs more than what can be provided at [facility]. Awaiting word from AL facility. 2. Sclerotic density R intertrochanteric area on XRay - not visualized on CT Pelvis/LEs. 3. JEREMÍAS on CKD 3 - Creat improving, at baseline currently. Renal US - Atrophic echogenic kidneys, L Renal cyst. 4. Hepatic Dysfunction (elevated AST, GGT) Abdominal US - fatty liver. Hepatitis panel negative. 5. HTN - continue Norvasc, Coreg. 6. COPD - Stable, no evidence of decompensation. On AnoroEllipta, Albuterol PRN. 7. Bipolar Disorder - Continue Olanzapine, Lamotrigine, Fluoxetine. 8. HLD - Statin dose decreased due to elevated LFTs. 9. Macrocytic Anemia - etiology unclear. B12/folate non-deficient. ?sec to Liver disease +/- CKD. Iron 62/Ferritin 224/FOBT negative. Hematology consulted - recommend further out-patient work-up with Flow Cytometry /FISH. Nephrology consulted ? any benefit from Epo. 10. Severe MR - evaluated by Cardiology - for out-patient follow up. DVT Px - Heparin SQ.
--- NOTE | 2019-05-09 15:25 | CONSULT ---
Consult Consult Specialty:: Nephrology Reason for Consultation:: CKD - History of Present Illness Chief Complaint: back pain History of Present Illness: Pt is a 74 year old female with pmhx of htn, copd, and bipolar who presents to the ER for back pain. She was found to have elevated creatinine and I was called to evaluate her. She denies shortness of breath. She denies dysuria or hematuria. She denies history of CKD. She says that she does take nsaids at times. She is a poor historian. - History Source History Provided By: Patient, Medical Record - Past Medical History Cardio/Vascular: Yes: HTN Renal/: Yes: Renal Inusuff - Alcohol/Substance Use Hx Alcohol Use: No - Smoking History Smoking history: Never smoked Have you smoked in the past 12 months: No Home Medications - Allergies Allergies/Adverse Reactions: Allergies Allergy/AdvReac Type Severity Reaction Status Date / Time No Known Allergies Allergy Verified 05/06/19 23:06 - Home Medications Home Medications: Ambulatory Orders Acetaminophen 650 mg PO QID PRN 05/06/19 Albuterol Sulfate Inhaler - [Ventolin Hfa Inhaler -] 1 - 2 inh PO Q4H 05/06/19 Albuterol Sulfate Inhaler - [Ventolin Hfa Inhaler -] 1 puff IH QID 05/06/19 Amlodipine Besylate 5 mg PO DAILY 05/06/19 Aspirin 81 mg PO DAILY 05/06/19 Calcitriol [Rocaltrol -] 0.25 mcg PO Q2D 05/06/19 Carvedilol [Coreg -] 12.5 mg PO BID 05/06/19 Fluoxetine HCl 60 mg PO DAILY 05/06/19 Lamotrigine [Lamictal] 200 mg PO DAILY 05/06/19 Olanzapine [Zyprexa -] 5 mg PO DAILY 05/06/19 Rosuvastatin Calcium [Crestor] 10 mg PO DAILY 05/06/19 Sodium Chloride [Nasadrops] 15 ml NS DAILY 05/06/19 Umeclidinium Brm/Vilanterol Tr [Anoro Ellipta 62.5-25 Mcg INH] 1 each IH DAILY 05/06/19 Family Medical History Family History: Denies Review of Systems - Review of Systems Constitutional: reports: Malaise Eyes: reports: No Symptoms HENT: reports: No Symptoms Neck: reports: No Symptoms Cardiovascular: reports: No Symptoms Respiratory: reports: No Symptoms Gastrointestinal: reports: No Symptoms Genitourinary: reports: No Symptoms Musculoskeletal: reports: Back Pain Neurological: reports: No Symptoms Endocrine: reports: No Symptoms Hematology/Lymphatic: reports: No Symptoms Physical Exam Vital Signs: Vital Signs Temperature 97.3 F L 05/09/19 14:35 Pulse Rate 68 05/09/19 14:35 Respiratory Rate 20 05/09/19 14:35 Blood Pressure 143/56 L 05/09/19 14:35 O2 Sat by Pulse Oximetry (%) 96 05/09/19 09:00 Constitutional: Yes: Calm Eyes: Yes: Conjunctiva Clear HENT: Yes: Atraumatic Cardiovascular: Yes: S1, S2 Respiratory: Yes: CTA Bilaterally Gastrointestinal: Yes: Soft Renal/: Yes: WNL Musculoskeletal: Yes: Back Pain Extremities: Yes: WNL Edema: No Neurological: Yes: Oriented Psychiatric: Yes: Oriented Labs: CBC, BMP 05/09/19 06:19 05/09/19 06:19 Laboratory Tests 05/06/19 05/07/19 05/07/19 23:39 01:25 06:44 Creatinine 3.5 H 3.4 H Urine Protein 1+ H Urine Blood 1+ H 05/08/19 05/09/19 06:35 06:19 Creatinine 3.0 H 3.0 H Urine Protein Urine Blood Imaging - Results Ultrasound: Report Reviewed Problem List - Problems (1) CKD (chronic kidney disease) Code(s): N18.9 - CHRONIC KIDNEY DISEASE, UNSPECIFIED (2) HTN (hypertension) Code(s): I10 - ESSENTIAL (PRIMARY) HYPERTENSION (3) Bipolar 1 disorder Code(s): F31.9 - BIPOLAR DISORDER, UNSPECIFIED (4) Back pain Code(s): M54.9 - DORSALGIA, UNSPECIFIED Assessment/Plan Current Medications Generic Name Dose Route Start Last Admin Trade Name Freq PRN Reason Stop Dose Admin Albuterol Sulfate 2 puff 05/07/19 16:15 Ventolin Hfa Inhaler - IH Q4H PRN SHORTNESS OF BREATH Amlodipine Besylate 5 mg 05/07/19 16:15 05/09/19 12:01 Norvasc - PO 5 mg DAILY LONNY Administration Aspirin 81 mg 05/08/19 10:00 05/09/19 12:00 Asa - PO 81 mg DAILY LONNY Administration Calcitriol 0.25 mcg 05/09/19 10:00 05/09/19 12:00 Rocaltrol - PO 0.25 mcg Q2D LONNY Administration Carvedilol 12.5 mg 05/07/19 22:00 05/09/19 12:00 Coreg - PO 12.5 mg BID LONNY Administration Fluoxetine HCl 60 mg 05/08/19 10:00 05/09/19 12:01 Prozac - PO 60 mg DAILY LONNY Administration Heparin Sodium (Porcine) 5,000 unit 05/07/19 13:15 05/09/19 12:00 Heparin - SQ 5,000 unit BID LONNY Administration Sodium Chloride 1,000 mls @ 100 mls/hr 05/07/19 04:45 05/09/19 11:48 Normal Saline - IV 100 mls/hr ASDIR LONNY Administration Lamotrigine 200 mg 05/08/19 10:00 05/09/19 12:00 Lamictal - PO 200 mg DAILY LONNY Administration Olanzapine 5 mg 05/08/19 10:00 05/09/19 12:00 Zyprexa - PO 5 mg DAILY LONNY Administration Rosuvastatin Calcium 5 mg 05/08/19 22:00 05/08/19 22:44 Crestor - PO 5 mg HS LONNY Administration Umeclidinium/Vilanterol 1 puff 05/08/19 10:00 05/09/19 12:01 Anoro Ellipta 62.5-25 Mcg Inh IH 1 puff DAILY LONNY Administration Impression 1. CKD 2. HTN 3. bipolar 4. s/p fall 5. 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
--- NOTE | 2019-05-09 18:04 | PN ---
Teaching Attending Note Name of Resident: Addi Sanchez ATTENDING PHYSICIAN STATEMENT I saw and evaluated the patient. I reviewed the resident's note and discussed the case with the resident. I agree with the resident's findings and plan as documented. SUBJECTIVE: Patient seen and examined Presented after being found on floor. Details unclear Found to have macrocytic anemia, renal insufficieny with elevated creatinine , macrocytosis , with normal B-12, folate, and elevated TSH. Has abnormal LFT's. Absolute retic count elevated , but corrected retic count normal. Last Vital Signs Temp Pulse Resp BP Pulse Ox 97.3 F L 68 20 143/56 L 96 05/09/19 14:35 05/09/19 14:35 05/09/19 14:35 05/09/19 14:35 05/09/19 09:00 HEENT: ELBERT, EOM Intact Oropharynx: No thrush, No mucositis Neck: Supple Nodes: Without adenopathy Breasts: Without masses Cor: RSR, No murmurs, No gallops Lungs: Clear to P&A Abd: Soft, Normal bowel sounds, No organomegaly Ext:No significant edema Skin: No rashes, Integument intact CBC, BMP 05/09/19 06:19 05/09/19 06:19 Current Medications Generic Name Dose Route Start Last Admin Trade Name Freq PRN Reason Stop Dose Admin Albuterol Sulfate 2 puff 05/07/19 16:15 Ventolin Hfa Inhaler - IH Q4H PRN SHORTNESS OF BREATH Amlodipine Besylate 5 mg 05/07/19 16:15 05/09/19 12:01 Norvasc - PO 5 mg DAILY LONNY Administration Aspirin 81 mg 05/08/19 10:00 05/09/19 12:00 Asa - PO 81 mg DAILY LONNY Administration Calcitriol 0.25 mcg 05/09/19 10:00 05/09/19 12:00 Rocaltrol - PO 0.25 mcg Q2D LONNY Administration Carvedilol 12.5 mg 05/07/19 22:00 05/09/19 12:00 Coreg - PO 12.5 mg BID LONNY Administration Fluoxetine HCl 60 mg 05/08/19 10:00 05/09/19 12:01 Prozac - PO 60 mg DAILY LONNY Administration Heparin Sodium (Porcine) 5,000 unit 05/07/19 13:15 05/09/19 12:00 Heparin - SQ 5,000 unit BID LONNY Administration Sodium Chloride 1,000 mls @ 100 mls/hr 05/07/19 04:45 05/09/19 11:48 Normal Saline - IV 100 mls/hr ASDIR LONNY Administration Lamotrigine 200 mg 05/08/19 10:00 05/09/19 12:00 Lamictal - PO 200 mg DAILY LONNY Administration Olanzapine 5 mg 05/08/19 10:00 05/09/19 12:00 Zyprexa - PO 5 mg DAILY LONNY Administration Rosuvastatin Calcium 5 mg 05/08/19 22:00 05/08/19 22:44 Crestor - PO 5 mg HS LONNY Administration Umeclidinium/Vilanterol 1 puff 05/08/19 10:00 05/09/19 12:01 Anoro Ellipta 62.5-25 Mcg Inh IH 1 puff DAILY LONNY Administration Impression: Macrocytic anemia - nl B-12, folate, mild increase in TSH, reverse a/g ratio, normal corrected retic count , abnormal LFT's. Macrocytosis may be secondary to elevated TSH, abnormal LFT's, or ? MDS. Flow cytometry pending Will need protein studies. Needs sono of liver/spleen. OBJECTIVE: ASSESSMENT AND PLAN:
[2019-05-09] MEDS: ROSUVASTATIN CA 5 MG TABLET (FP) PO SCH (22:19)
--- NOTE | 2019-05-10 07:14 | PN ---
Progress Note, Physician Chief Complaint: syncope History of Present Illness: denies dizziness (or prior h/o syncope) no palpitations, cp feels sob today denies drugs - Current Medication List Current Medications: Active Medications Albuterol Sulfate (Ventolin Hfa Inhaler -) 2 puff IH Q4H PRN PRN Reason: SHORTNESS OF BREATH Amlodipine Besylate (Norvasc -) 5 mg PO DAILY [facility] Last Admin: 05/09/19 12:01 Dose: 5 mg Aspirin (Asa -) 81 mg PO DAILY [facility] Last Admin: 05/09/19 12:00 Dose: 81 mg Calcitriol (Rocaltrol -) 0.25 mcg PO Q2D [facility] Last Admin: 05/09/19 12:00 Dose: 0.25 mcg Carvedilol (Coreg -) 12.5 mg PO BID [facility] Last Admin: 05/09/19 22:19 Dose: 12.5 mg Fluoxetine HCl (Prozac -) 60 mg PO DAILY [facility] Last Admin: 05/09/19 12:01 Dose: 60 mg Heparin Sodium (Porcine) (Heparin -) 5,000 unit SQ BID [facility] Last Admin: 05/09/19 22:19 Dose: 5,000 unit Sodium Chloride (Normal Saline -) 1,000 mls @ 100 mls/hr IV ASDIR [facility] Last Admin: 05/09/19 11:48 Dose: 100 mls/hr Lamotrigine (Lamictal -) 200 mg PO DAILY [facility] Last Admin: 05/09/19 12:00 Dose: 200 mg Olanzapine (Zyprexa -) 5 mg PO DAILY [facility] Last Admin: 05/09/19 12:00 Dose: 5 mg Rosuvastatin Calcium (Crestor -) 5 mg PO HS [facility] Last Admin: 05/09/19 22:19 Dose: 5 mg Umeclidinium/Vilanterol (Anoro Ellipta 62.5-25 Mcg Inh) 1 puff IH DAILY [facility] Last Admin: 05/09/19 12:01 Dose: 1 puff - Objective Vital Signs: Vital Signs Temperature 98.0 F 05/09/19 22:00 Pulse Rate 65 05/10/19 06:00 Respiratory Rate 20 05/10/19 06:00 Blood Pressure 133/49 L 05/10/19 06:00 O2 Sat by Pulse Oximetry (%) 94 L 05/09/19 21:00 Constitutional: Yes: No Distress, Calm Eyes: No: Sclera Icterus HENT: No: Nasal Congestion Cardiovascular: Yes: Regular Rate and Rhythm, S1, S2, Other (PMI non diplaced). No: JVD, Gallop, Murmur Respiratory: Yes: CTA Bilaterally, Wheezes. No: Accessory Muscle Use, Rales Gastrointestinal: Yes: Normal Bowel Sounds, Soft. No: Tenderness Musculoskeletal: Yes: Other (No kyphosis) Extremities: No: Cold, Cyanosis Edema: No Integumentary: No: Jaundice Neurological: Yes: Alert. No: Seizure Psychiatric: No: Agitated Labs: CBC, BMP 05/09/19 06:19 05/09/19 06:19 INR, PTT INR 1.05 (0.83-1.09) 05/06/19 23:39 Assessment/Plan echo 04/2019 tds, nl LV function,mod to severe MR, mod MAC, RWMA cannot be excluded, RV nl ecg 05/10: NSR, normal axis, QTc (manually calculated) = 490 msec. (no isch changes) cxr: prominent central markings tele: sinus, artifact fall, syncope - pt states she rolled out of bed to floor while asleep, however cannot provide details or recollection of sequence of events once on the floor. sustained ecchymosis R forehead - no events on tele thus far - carotid stenosis on doppler, <50% - no intervention per vascular - mild drop on orthostatics (9 mmHg) - trop neg, no ischemic changes on EKG prolonged QTc - initially 515 ms, now improved 490 range (as above) - avoid QT prolonging agents - maintain K>4, Mg >2 - given uncertainty of history (cannot confirm pt report that she rolled out of bed in her sleep), would rec outpatient 28 day patch monitor if tele benign while here - both fluoxetine and olanzapine can prolong QT (hermelinda in combination). rec continued monitoring of ecg--if QT remains <500 and psych believes she is at significant risk of decompensation if meds are changed, then reasonable to continue these with frequent routine ECG monitoring as outpatient. no firm guidelines--reasonable recommendation would be ECG q1-2 months. if QT prolongs to 500+ in future, will need to alter her regimen. sob, wheezing: - appears euvolemic, cxr underwhelming - suspect bronchospasm--cont prn nebs for now as doing mitral regurgitation - moderate to severe MR on echo - denies chest pain, dyspnea - outpatient follow up and repeat echo with MR quantification will be needed in our office, +/- ? valve center CKD - per pt had dialysis access placed in the past, but no history of HD - ? baseline creat - plan per renal HTN - stable on current meds, continue bipolar disorder - manage per primary anemia - etiology uncertain, heme is evaluating
[2019-05-10 07:59] LABS: HEMATOCRIT 22.2 % (32.4-45.2); HEMOGLOBIN 7.3 GM/dL (10.7-15.3); MCH 33.7 pg (25.7-33.7); MCHC 32.8 g/dl (32.0-36.0); MEAN CELL VOLUME 102.8 fl (80-96); MEAN PLT VOLUME 10.3 fl (7.5-11.1); PLATELET COUNT 174 K/MM3 (134-434); RBC 2.16 M/mm3 (3.60-5.2); RDW 13.9 % (11.6-15.6); WHITE BLOOD COUNT 6.7 K/mm3 (4.0-10.0)
[2019-05-10 08:25] LABS: ALBUMIN 2.4 g/dl (3.4-5.0); BILIRUBIN,TOTAL 1.1 mg/dL (0.2-1); BLOOD UREA NITROGEN 24.1 mg/dL (7-18); CALCIUM 9.3 mg/dL (8.5-10.1); CREATININE 2.7 mg/dL (0.55-1.3); POTASSIUM 4.9 mmol/L (3.5-5.1); TOT PROT 5.7 g/dl (6.4-8.2)
[2019-05-10] MEDS ORDERED: PT OWN MED DRAWER 7, Y5N ONE (08:29)
[2019-05-10] MEDS: SODIUM CHLORIDE 1,000 ML IV SCH (09:37)
[2019-05-10] MEDS: UMECLIDINIUM/VILANTEROL (ANORO) 62.5/25 MCG INHALER IH SCH (09:38)
[2019-05-10] MEDS: FLUoxetine HCL 20 MG CAPSULE (FP) PO SCH (09:39)
[2019-05-10] MEDS: CARVEDILOL 12.5 MG TABLET (FP) PO SCH ×2 (09:39→21:30)
[2019-05-10] MEDS: amLODIPine BESYLATE 5 MG TABLET (FP) PO SCH (09:40)
[2019-05-10] MEDS: HEPARIN NA (PORCINE) 5,000 UNITS/ML 1ML VIAL SQ SCH ×2 (09:40→21:29)
[2019-05-10] MEDS: ASPIRIN 81 MG CHEWABLE TABLETS PO SCH (09:40)
[2019-05-10] MEDS: OLANZapine 5 MG TABLET PO SCH (09:42)
--- NOTE | 2019-05-10 10:54 | PN ---
Teaching Attending Note Name of Resident: Letty Clement ATTENDING PHYSICIAN STATEMENT I saw and evaluated the patient. I reviewed the resident's note and discussed the case with the resident. I agree with the resident's findings and plan as documented. SUBJECTIVE: Wants to return home to [facility] facility. Feels well. No chest pain/ palpitations/dyspnea/lightheadedness. No fever/chills. OBJECTIVE: Afebrile, Hemodynamically Stable. SpO2 94% on 2L via NC. Last Vital Signs Temp Pulse Resp BP Pulse Ox 97.8 F 66 22 H 156/58 L 93 L 05/10/19 10:00 05/10/19 10:00 05/10/19 10:00 05/10/19 10:00 05/10/19 09:00 Heart - S1, S2 soft SM Lungs - clear to auscultation Abdomen - soft, non-tender. Bowel Sounds normal. Extremities - No edema, no calf tenderness. Neuro - AAO x 2. Tone/Power normal all extremities. Laboratory Results - last 24 hr 05/10/19 05/10/19 07:15 07:15 WBC 6.7 RBC 2.16 L Hgb 7.3 L Hct 22.2 L MCV 102.8 H MCH 33.7 MCHC 32.8 RDW 13.9 Plt Count 174 MPV 10.3 Sodium 139 Potassium 4.9 Chloride 113 H Carbon Dioxide 17 L Anion Gap 9 BUN 24.1 H Creatinine 2.7 H Est GFR (CKD-EPI)AfAm 19.21 Est GFR (CKD-EPI)NonAf 16.57 Random Glucose 115 H Calcium 9.3 Total Bilirubin 1.1 H AST 89 H ALT 40 Alkaline Phosphatase 180 H LD Total 150 Total Protein 5.7 L Albumin 2.4 L Current Medications Generic Name Dose Route Start Last Admin Trade Name Freq PRN Reason Stop Dose Admin Albuterol Sulfate 2 puff 05/07/19 16:15 Ventolin Hfa Inhaler - IH Q4H PRN SHORTNESS OF BREATH Amlodipine Besylate 5 mg 05/07/19 16:15 05/10/19 09:40 Norvasc - PO 5 mg DAILY [facility] Administration Aspirin 81 mg 05/08/19 10:00 05/10/19 09:40 Asa - PO 81 mg DAILY [facility] Administration Calcitriol 0.25 mcg 05/09/19 10:00 05/09/19 12:00 Rocaltrol - PO 0.25 mcg Q2D [facility] Administration Carvedilol 12.5 mg 05/07/19 22:00 05/10/19 09:39 Coreg - PO 12.5 mg BID [facility] Administration Fluoxetine HCl 60 mg 05/08/19 10:00 05/10/19 09:39 Prozac - PO 60 mg DAILY [facility] Administration Heparin Sodium (Porcine) 5,000 unit 05/07/19 13:15 05/10/19 09:40 Heparin - SQ 5,000 unit BID [facility] Administration Sodium Chloride 1,000 mls @ 100 mls/hr 05/07/19 04:45 05/10/19 09:37 Normal Saline - IV Not Given ASDIR [facility] Lamotrigine 200 mg 05/08/19 10:00 05/10/19 09:43 Lamictal - PO 200 mg DAILY [facility] Administration Olanzapine 5 mg 05/08/19 10:00 05/10/19 09:42 Zyprexa - PO 5 mg DAILY [facility] Administration Rosuvastatin Calcium 5 mg 05/08/19 22:00 05/09/19 22:19 Crestor - PO 5 mg HS [facility] Administration Umeclidinium/Vilanterol 1 puff 05/08/19 10:00 05/10/19 09:38 Anoro Ellipta 62.5-25 Mcg Inh IH 1 puff DAILY [facility] Administration Home Medications Medication Instructions Recorded Acetaminophen 650 mg PO QID PRN 05/06/19 Albuterol Sulfate Inhaler - 1 - 2 inh PO Q4H 05/06/19 [Ventolin Hfa Inhaler -] Albuterol Sulfate Inhaler - 1 puff IH QID 05/06/19 [Ventolin Hfa Inhaler -] Amlodipine Besylate 5 mg PO DAILY 05/06/19 Aspirin 81 mg PO DAILY 05/06/19 Calcitriol [Rocaltrol -] 0.25 mcg PO Q2D 05/06/19 Carvedilol [Coreg -] 12.5 mg PO BID 05/06/19 Fluoxetine HCl 60 mg PO DAILY 05/06/19 Lamotrigine [Lamictal] 200 mg PO DAILY 05/06/19 Olanzapine [Zyprexa -] 5 mg PO DAILY 05/06/19 Rosuvastatin Calcium [Crestor] 10 mg PO DAILY 05/06/19 Sodium Chloride [Nasadrops] 15 ml NS DAILY 05/06/19 Umeclidinium Brm/Vilanterol Tr 1 each IH DAILY 05/06/19 [Anoro Ellipta 62.5-25 Mcg INH] ASSESSMENT AND PLAN: 74 year old female resident at [facility], HTN, COPD, Bipolar, hearing impairment, brought to ED after being found on the floor, poor historian , unable to recount iván-collapse events/symptoms, complains of R hip/leg pain. CT of the head - showed a mild right frontal scalp edema without skull fracture or intracranial hemorrhage CT of cervical spine - is negative for fracture or prevertebral soft tissue swelling, degenerative changes in C2-C4 CXR - no acute findings. Hip/Pelvis Xray - sclerotic density R intertrochanteric area 1. Syncope vs Fall ECG - NSR, QTc 515 ---> 491 Echo - LV EF Normal, severe MR. Carotid Duplex - shows some narrowing of carotids - evaluated by Vascular Sx - no need for intervention as narrowing < 50%. Orthostatic Vitals negative PT recommends Rehab, scheduled for discharge to [facility] today. 2. Sclerotic density R intertrochanteric area on XRay - not visualized on CT Pelvis/LEs. 3. JEREMÍAS on CKD 3 - Creat improving, at baseline currently. Renal US - Atrophic echogenic kidneys, L Renal cyst. 4. Hepatic Dysfunction (elevated AST, GGT) Abdominal US - fatty liver. Hepatitis panel negative. 5. HTN - continue Norvasc, Coreg. 6. COPD - Stable, no evidence of decompensation. On AnoroEllipta, Albuterol PRN. 7. Bipolar Disorder - Continue Olanzapine, Lamotrigine, Fluoxetine. Monthly ECG for QTc check as per Cardio. 8. HLD - Statin dose decreased due to elevated LFTs. 9. Macrocytic Anemia - etiology unclear. B12/folate non-deficient. ?sec to Liver disease +/- CKD. Iron 62/Ferritin 224/FOBT negative. Hematology consulted - recommend further out-patient work-up with Flow Cytometry /FISH. 10. Severe MR - evaluated by Cardiology - for out-patient follow up. Medicaly optimized for discharge with Cardio, Hematlogy, Nephrology follow ups.
--- NOTE | 2019-05-10 13:58 | EKG ---
Test Reason : Blood Pressure : / mmHG Vent. Rate : 071 BPM Atrial Rate : 071 BPM P-R Int : 148 ms QRS Dur : 092 ms QT Int : 454 ms P-R-T Axes : 041 010 062 degrees QTc Int : 493 ms NORMAL SINUS RHYTHM PROLONGED QT ABNORMAL ECG WHEN COMPARED WITH ECG OF 07-MAY-2019 14:31, NO SIGNIFICANT CHANGE WAS FOUND Confirmed by TERA MOREL MD ([id number]) on 05/10/2019 1:58:01 PM Referred By: Guru ROLON Confirmed By:TERA MOREL MD
--- NOTE | 2019-05-10 15:26 | DS ---
Physical Exam: SUBJECTIVE: Patient seen and examined. No acute events overnight. denies abd pain, SOB, chest pain. OBJECTIVE: Vital Signs Period Temp Pulse Resp BP Sys/Marcelo Pulse Ox Last 24 Hr 97.3 F-98.0 F 65-69 20-22 133-156/49-58 93-94 PHYSICAL EXAM GENERAL: awake, alert, fully oriented HEAD: Normal with no signs of trauma. EYES: EOMI, no scleral icterus ENT: dry mucous membranes NECK: Trachea midline, supple LUNGS: CTA B/L. no crackles, no accessory muscle use. HEART: RRR, S1, S2 normal ABDOMEN: Soft, nontender, nondistended, normoactive bowel sounds, no guarding, no rebound MSK: Mild tenderness to palpation over right hip/femur. EXTREMITIES: 2+ pulses, warm, well-perfused, no edema. NEUROLOGICAL: Normal sensation throughout. AAOx2 (self and place) SKIN: Warm, dry. Multiple small healing scabbed over abrasions noted on lower and upper extremities. LABS Laboratory Results - last 24 hr 05/10/19 05/10/19 07:15 07:15 WBC 6.7 RBC 2.16 L Hgb 7.3 L Hct 22.2 L MCV 102.8 H MCH 33.7 MCHC 32.8 RDW 13.9 Plt Count 174 MPV 10.3 Sodium 139 Potassium 4.9 Chloride 113 H Carbon Dioxide 17 L Anion Gap 9 BUN 24.1 H Creatinine 2.7 H Est GFR (CKD-EPI)AfAm 19.21 Est GFR (CKD-EPI)NonAf 16.57 Random Glucose 115 H Calcium 9.3 Total Bilirubin 1.1 H AST 89 H ALT 40 Alkaline Phosphatase 180 H LD Total 150 Total Protein 5.7 L Albumin 2.4 L HOSPITAL COURSE: Date of Admission:05/07/19 Date of Discharge: 05/10/19 74 y/o/f with PMHx of HTN, COPD, bipolar disorder, hearing loss who presented to the ED from [facility] and assisted living [facility] for back pain, R hip pain and R thigh pain s/p fall with evidence of right frontal scalp edema. Patient has had multiple falls over the last two weeks as per assisted living facility. Patient had imaging done including CR head, CT cervical spine, Hep/Pelvis X-rays, CT Pelvis, CT lower extremity which was all negative for fracture, masses, or bleeding. Patient was worked up for syncope vs. fall. Carotid U/S showed <50% stenosis of carotids but patient was evaluated by vascular surgery and there was no need for intervention at this time. Orthostatic vitals were negative. On ECHO patient was found to have severe Mitral Regurg. On initial EKG patient had a QTc of 515 which improved to 491 on repeat EKG. However, Cardio recommended outpatient follow up for the Mitral valve regurg and for monthly EKG monitoring as patient is on QTc prolonging medications. Patient had elevated kidney function on admission without any known history of CKD. U/S showed echogenic and atrophic kidneys suggestive of chronic kidney disease. Nephro was consulted and recommended outpatient follow up to evaluate baseline Cr. On labs patient was also found to have macrocytic anemia of unclear etiology (B12, folate normal). Heme onc was consulted and recommended further workup outpatient. Patient's home medications were continued while in the hospital. Follow up was given for Cardiology, Heme/Onc, and nephrology. Patient stable for discharge to SNF. Minutes to complete discharge: 36 Discharge Summary Problems reviewed: Yes Reason For Visit: SYNCOPE Current Active Problems Back pain (Acute) Bipolar 1 disorder (Acute) CKD (chronic kidney disease) (Acute) HTN (hypertension) (Acute) Hospital Course: 74 y/o/f with PMHx of HTN, COPD, bipolar disorder, hearing loss who presented to the ED from [facility] and assisted living [facility] for back pain, R hip pain and R thigh pain s/p fall with evidence of right frontal scalp edema. Patient has had multiple falls over the last two weeks as per assisted living facility. Patient had imaging done including CT scan head, CT cervical spine, Hep/Pelvis X-rays, CT Pelvis, CT lower extremity which was all negative for fracture, masses, or bleeding. Patient was worked up for syncope vs. fall. Carotid U/S showed <50% stenosis of carotids but patient was evaluated by vascular surgery and there was no need for intervention at this time. Orthostatic vitals were negative. On ECHO patient was found to have severe Mitral Regurg. On initial EKG patient had a QTc of 515 which improved to 491 on repeat EKG. However, Cardio recommended outpatient follow up for the Mitral valve regurg and for serial EKG monitoring 1-2 times a month as patient is on QTc prolonging medications. Patient had elevated kidney function on admission without any known history of CKD. Kidney ultrasound showed echogenic and atrophic kidneys suggestive of chronic kidney disease. Nephrology was consulted and recommended outpatient follow up to evaluate baseline Cr. On labs patient was also found to have macrocytic anemia of unclear etiology (B12, folate normal ). Heme onc was consulted and recommended further workup outpatient. She was noted with elevated TSH and will need outpatient monitoring. Patient's home medications were continued while in the hospital. Follow up was given for Cardiology, Heme/Onc, and nephrology. Patient stable for discharge to SNF. Condition: Stable - Instructions Diet, Activity, Other Instructions: You presented to the hospital after being found on the floor after an unwitnessed fall. You had imaging done of your head, cervical spine, hip, and pelvis which showed no fractures or bleeding. You had an cardiac ultrasound done which showed severe mitral valve regurgitation for which Cardiology recommends outpatient follow up for a repeat ultrasound. You also had an EKG done which showed a prolonged QTc for which cardiology recommended repeat EKGs every 1-2 months for monitoring. Your kidney function was also found to be elevated on admission, you were seen by Nephrology who recommended outpatient follow up. You were found to have anemia during this admission and were seen by Heme/Onc who recommended outpatient follow up as well. Your home medications were continued while in the hospital. Medication changes: 1. Your Rosuvastatin dose was decreased to 5mg daily. Follow up with the following physicians: 1. Please follow up with your primary care provider within one week of discharge as you will need repeat labs of your liver. 2. Follow up with Hematology/Oncology, Dr. Avelar, within one week of discharge for further evaluation of your anemia. 3. Follow up with Dr. Mishra, Nephrology, for your kidney disease and follow up labs. 4. Follow up with Dr. Grace, Cardiology, for further evaluation of your mitral valve regurgitation and EKG monitoring. You will need serial EKG monitoring 1-2 times a month with your doctor and adjustment of your psychiatric medications accordingly. 5. With your psychiatrist to adjust your medications based on EKG readings (and "Qtc interval") 6. Vascular surgery Follow up Dr. Scott (to monitor carotid stenosis), Regular carotid Ultrasound screening FOLLOW UP BLOOD TESTS: CBC, BMP in 1 week Thyroid function tests in 2-3 weeks EKG 1-2 times a month Regular screening carotid Ultrasound to monitor narrowing PENDING BLOOD TESTS: Immune electrophoresis (To be followed with Dr. Mishra on next visit in 1-2 weeks) Flow cytometry (to be followed with Dr. Avelar in 1-2 weeks on next visit) Activity and Diet 1. You are being discharged to a rehab facility to strengthen your muscles. 2. Please continue to monitor your diet as you need to intake less salt and drink plenty of fluids. 3. Please do not use NSAIDs (Ibuprofen, Advil, Motrin etc.) Continue all your other medications as prescribed Please return to the ER if you have any signs or symptoms of chest pain, shortness of breath, uncontrollable fever, chills, nausea, vomiting, numbness, tingling, or weakness in any part of your body, changes in vision, or slurred speech. Please return to the ER if symptoms persist, worsen, or new symptoms arise. Referrals: Micheal Grace MD [Staff Physician] - Franki Scott DO [Staff Physician] - Michael Iyer MD [Primary Care Provider] - Titus Avelar MD [Staff Physician] - Sivan Mishra MD [Staff Physician] - Disposition: LONG TERM FACILITY - Home Medications Comprehensive Discharge Medication List: Ambulatory Orders Albuterol Sulfate Inhaler - [Ventolin HFA Inhaler -] 1 puff IH QID 05/06/19 Amlodipine Besylate 5 mg PO DAILY 05/06/19 Aspirin 81 mg PO DAILY 05/06/19 Calcitriol [Calcitriol -] 0.25 mcg PO Q2D 05/06/19 Carvedilol [Coreg -] 12.5 mg PO BID 05/06/19 Fluoxetine HCl 60 mg PO DAILY 05/06/19 Lamotrigine [Lamictal] 200 mg PO DAILY 05/06/19 Olanzapine [Zyprexa -] 5 mg PO DAILY 05/06/19 Sodium Chloride [Nasadrops] 15 ml NS DAILY 05/06/19 Umeclidinium Brm/Vilanterol Tr [Anoro Ellipta 62.5-25 Mcg INH] 1 each IH DAILY 05/06/19 Rosuvastatin [Crestor -] 5 mg PO HS #30 tablet 05/10/19 This patient is new to me today: No Emergency Visit: Yes ED Registration Date: 05/07/19 Care time: The patient presented to the Emergency Department on the above date and was hospitalized for further evaluation of their emergent condition. Critical Care patient: No - Discharge Referral Referred to [facility] No ATTENDING PHYSICIAN STATEMENT I saw and evaluated the patient. I reviewed the resident's note and discussed the case with the resident. I agree with the resident's findings and plan as documented. SUBJECTIVE: OBJECTIVE: ASSESSMENT AND PLAN:
--- NOTE | 2019-05-10 21:00 | PN ---
Progress Note (short form) - Note Progress Note: 1. CKD 2. HTN 3. bipolar 4. s/p fall 5. HLD Current Medications Albuterol Sulfate (Ventolin Hfa Inhaler -) 2 puff IH Q4H PRN PRN Reason: SHORTNESS OF BREATH Amlodipine Besylate (Norvasc -) 5 mg PO DAILY [facility] Last Admin: 05/10/19 09:40 Dose: 5 mg Aspirin (Asa -) 81 mg PO DAILY [facility] Last Admin: 05/10/19 09:40 Dose: 81 mg Calcitriol (Rocaltrol -) 0.25 mcg PO Q2D [facility] Last Admin: 05/09/19 12:00 Dose: 0.25 mcg Carvedilol (Coreg -) 12.5 mg PO BID [facility] Last Admin: 05/10/19 09:39 Dose: 12.5 mg Fluoxetine HCl (Prozac -) 60 mg PO DAILY [facility] Last Admin: 05/10/19 09:39 Dose: 60 mg Heparin Sodium (Porcine) (Heparin -) 5,000 unit SQ BID [facility] Last Admin: 05/10/19 09:40 Dose: 5,000 unit Lamotrigine (Lamictal -) 200 mg PO DAILY [facility] Last Admin: 05/10/19 09:43 Dose: 200 mg Olanzapine (Zyprexa -) 5 mg PO DAILY [facility] Last Admin: 05/10/19 09:42 Dose: 5 mg Rosuvastatin Calcium (Crestor -) 5 mg PO HS [facility] Last Admin: 05/09/19 22:19 Dose: 5 mg Umeclidinium/Vilanterol (Anoro Ellipta 62.5-25 Mcg Inh) 1 puff IH DAILY [facility] Last Admin: 05/10/19 09:38 Dose: 1 puff Last Vital Signs Temp Pulse Resp BP Pulse Ox 98 F 68 18 142/72 93 L 05/10/19 14:20 05/10/19 14:20 05/10/19 14:20 05/10/19 14:20 05/10/19 09:00 Lungs clear Heart reg Abd soft CBC, BMP 05/10/19 07:15 05/10/19 07:15 IMP CKD Plan- continue current rx
[2019-05-10] MEDS: ROSUVASTATIN CA 5 MG TABLET (FP) PO SCH (21:29)
[2019-05-11] MEDS ORDERED: PT OWN MED DRAWER 7, Y5N ONE (08:41)
--- NOTE | 2019-05-11 08:59 | PN ---
Progress Note, Physician Chief Complaint: sob History of Present Illness: continues to feel mild sob. ? when started. quit cigs 2 mo ago. denies wheezing no cp, palp, leg swelling ex cigs - Current Medication List Current Medications: Active Medications Albuterol Sulfate (Ventolin Hfa Inhaler -) 2 puff IH Q4H PRN PRN Reason: SHORTNESS OF BREATH Amlodipine Besylate (Norvasc -) 5 mg PO DAILY [facility] Last Admin: 05/10/19 09:40 Dose: 5 mg Aspirin (Asa -) 81 mg PO DAILY [facility] Last Admin: 05/10/19 09:40 Dose: 81 mg Calcitriol (Rocaltrol -) 0.25 mcg PO Q2D [facility] Last Admin: 05/09/19 12:00 Dose: 0.25 mcg Carvedilol (Coreg -) 12.5 mg PO BID [facility] Last Admin: 05/10/19 21:30 Dose: 12.5 mg Fluoxetine HCl (Prozac -) 60 mg PO DAILY [facility] Last Admin: 05/10/19 09:39 Dose: 60 mg Heparin Sodium (Porcine) (Heparin -) 5,000 unit SQ BID [facility] Last Admin: 05/10/19 21:29 Dose: 5,000 unit Lamotrigine (Lamictal -) 200 mg PO DAILY [facility] Last Admin: 05/10/19 09:43 Dose: 200 mg Olanzapine (Zyprexa -) 5 mg PO DAILY [facility] Last Admin: 05/10/19 09:42 Dose: 5 mg Rosuvastatin Calcium (Crestor -) 5 mg PO HS [facility] Last Admin: 05/10/19 21:29 Dose: 5 mg Umeclidinium/Vilanterol (Anoro Ellipta 62.5-25 Mcg Inh) 1 puff IH DAILY [facility] Last Admin: 05/10/19 09:38 Dose: 1 puff - Objective Vital Signs: Vital Signs Temperature 97.8 F 05/11/19 05:00 Pulse Rate 72 05/11/19 05:00 Respiratory Rate 17 05/11/19 05:00 Blood Pressure 147/51 L 05/11/19 05:00 O2 Sat by Pulse Oximetry (%) 90 L 05/10/19 21:00 Constitutional: Yes: No Distress, Calm Eyes: No: Sclera Icterus HENT: No: Nasal Congestion Cardiovascular: Yes: Regular Rate and Rhythm, S1, S2, Other (PMI non diplaced). No: Gallop, Murmur Respiratory: Yes: CTA Bilaterally. No: Accessory Muscle Use, Rales, Wheezes Gastrointestinal: Yes: Normal Bowel Sounds, Soft. No: Tenderness Musculoskeletal: Yes: Other (No kyphosis) Extremities: No: Cold, Cyanosis Edema: No Integumentary: No: Jaundice Neurological: Yes: Alert, Oriented (x3) Psychiatric: No: Agitated Labs: CBC, BMP 05/10/19 07:15 05/10/19 07:15 INR, PTT INR 1.05 (0.83-1.09) 05/06/19 23:39 Assessment/Plan echo 04/2019 tds, nl LV function,mod to severe MR, mod MAC, RWMA cannot be excluded, RV nl ecg 05/10: NSR, normal axis, QTc (manually calculated) = 490 msec. (no isch changes) cxr: prominent central markings tele: sinus, artifact fall, syncope - pt states she rolled out of bed to floor while asleep, however cannot provide details or recollection of sequence of events once on the floor. sustained ecchymosis R forehead - no events on tele here - carotid stenosis on doppler, <50% - no intervention per vascular - mild drop on orthostatics (9 mmHg) - trop neg, no ischemic changes on EKG prolonged QTc - initially 515 ms, now improved 490 range (as above) - avoid QT prolonging agents - maintain K>4, Mg >2 - given uncertainty of history (cannot confirm pt report that she rolled out of bed in her sleep), would rec outpatient 28 day patch monitor if tele benign while here - both fluoxetine and olanzapine can prolong QT (hermelinda in combination). rec continued monitoring of ecg--if QT remains <500 and psych believes she is at significant risk of decompensation if meds are changed, then reasonable to continue these with frequent routine ECG monitoring as outpatient. no firm guidelines--reasonable recommendation would be ECG q1-2 months. if QT prolongs to 500+ in future, will need to alter her regimen. sob, wheezing: - appears euvolemic, cxr underwhelming - suspect bronchospasm--cont prn nebs for now as doing mitral regurgitation - moderate to severe MR on echo - appears euvolemic - outpatient follow up and repeat echo with MR quantification will be needed in our office, +/- ? valve center CKD - per pt had dialysis access placed in the past, but no history of HD - ? baseline creat - plan per renal HTN - stable on current meds, continue bipolar disorder - manage per primary anemia - etiology uncertain, heme is evaluating OK FOR D/C FROM [facility] P.O[facility].
[2019-05-11] MEDS: UMECLIDINIUM/VILANTEROL (ANORO) 62.5/25 MCG INHALER IH SCH (09:44)
[2019-05-11] MEDS: OLANZapine 5 MG TABLET PO SCH (09:45)
[2019-05-11] MEDS: CALCITRIOL 0.25 MCG CAPSULE (FP) PO SCH (09:47)
[2019-05-11] MEDS: FLUoxetine HCL 20 MG CAPSULE (FP) PO SCH (09:47)
[2019-05-11] MEDS: HEPARIN NA (PORCINE) 5,000 UNITS/ML 1ML VIAL SQ SCH (09:47)
[2019-05-11] MEDS: CARVEDILOL 12.5 MG TABLET (FP) PO SCH (09:47)
[2019-05-11] MEDS: ASPIRIN 81 MG CHEWABLE TABLETS PO SCH (09:47)
[2019-05-11] MEDS: amLODIPine BESYLATE 5 MG TABLET (FP) PO SCH (09:48)
--- NOTE | 2019-05-11 12:19 | DS ---
Physical Exam: SUBJECTIVE: Patient seen and examined, no complaints, agreable to go to SNF today. Pleasant and co-operative OBJECTIVE: Vital Signs Period Temp Pulse Resp BP Sys/Marcelo Pulse Ox Last 24 Hr 97.8 F-98 F 68-72 17-20 139-159/51-72 90-96 PHYSICAL EXAM GENERAL: sitting in wheelchair, no acute distress HEAD: Normal with no signs of trauma. EYES: PERRL, extraocular movements intact, sclera anicteric, conjunctiva clear. ENT: Ears normal, nares patent, oropharynx clear without exudates, moist mucous membranes. NECK: Trachea midline, full range of motion, supple. LUNGS: CTAB, no rales or wheezing HEART: Regular rate and rhythm, S1, S2 , left parasternal systolic murmur ABDOMEN: Soft, nontender, nondistended, normoactive bowel sounds, no guarding, no rebound, EXTREMITIES: 2+ pulses, warm, well-perfused, no edema. NEUROLOGICAL: AAOx3, facial symmetry, moves all extremities, normal speech, gait not observed PSYCH: Normal mood, normal affect. SKIN: Warm, dry, normal turgor, no rashes or lesions noted. LABS Laboratory Results - last 24 hr 05/10/19 07:15 Haptoglobin 153 Laboratory Last Values WBC 6.7 K/mm3 (4.0-10.0) 05/10/19 07:15 RBC 2.16 M/mm3 (3.60-5.2) L 05/10/19 07:15 Hgb 7.3 GM/dL (10.7-15.3) L 05/10/19 07:15 Hct 22.2 % (32.4-45.2) L 05/10/19 07:15 MCV 102.8 fl (80-96) H 05/10/19 07:15 MCH 33.7 pg (25.7-33.7) 05/10/19 07:15 MCHC 32.8 g/dl (32.0-36.0) 05/10/19 07:15 RDW 13.9 % (11.6-15.6) 05/10/19 07:15 Plt Count 174 K/MM3 (134-434) 05/10/19 07:15 MPV 10.3 fl (7.5-11.1) 05/10/19 07:15 Absolute Neuts (auto) 5.5 K/mm3 (1.5-8.0) 05/08/19 12:20 Neutrophils % 76.8 % (42.8-82.8) 05/08/19 12:20 Lymphocytes % 13.2 % (8-40) D 05/08/19 12:20 Monocytes % 9.3 % (3.8-10.2) 05/08/19 12:20 Eosinophils % 0.6 % (0-4.5) 05/08/19 12:20 Basophils % 0.1 % (0-2.0) 05/08/19 12:20 Nucleated RBC % 0 % (0-0) 05/08/19 12: Retic Count 3.33 % (0.5-1.5) H 05/07/19 06:44 Haptoglobin 153 mg/dL (42-346) 05/10/19 07:15 PT with INR 12.40 SEC (9.7-13.0) 05/06/19 23:39 INR 1.05 (0.83-1.09) 05/06/19 23:39 PTT (Actin FS) 35.3 SECONDS (25.2-36.5) 05/06/19 23:39 Sodium 139 mmol/L (136-145) 05/10/19 07:15 Potassium 4.9 mmol/L (3.5-5.1) 05/10/19 07:15 Chloride 113 mmol/L (98-107) H 05/10/19 07:15 Carbon Dioxide 17 mmol/L (21-32) L 05/10/19 07:15 Anion Gap 9 MMOL/L (8-16) 05/10/19 07:15 BUN 24.1 mg/dL (7-18) H 05/10/19 07:15 Creatinine 2.7 mg/dL (0.55-1.3) H 05/10/19 07:15 Est GFR (CKD-EPI)AfAm 19.05/10/19 07:15 Est GFR (CKD-EPI)NonAf 16.57 05/10/19 07:15 Random Glucose 115 mg/dL (74-106) H 05/10/19 07:15 Calcium 9.3 mg/dL (8.5-10.1) 05/10/19 07:15 Phosphorus 3.0 mg/dL (2.5-4.9) 05/07/19 06:44 Magnesium 2.3 mg/dL (1.8-2.4) 05/08/19 06:35 Iron 62 ug/dL (50-175) 05/07/19 06:44 TIBC 188 ug/dL (250-450) L 05/07/19 06:44 Iron Saturation 32 % (17.5-39) 05/07/19 06:44 Unsaturated IBC 126 ug/dL (200-275) L 05/07/19 06:44 Ferritin 224.4 ng/ml (8-388) 05/07/19 06:44 Total Bilirubin 1.1 mg/dL (0.2-1) H 05/10/19 07:15 GGT 514 U/L (5-85) H 05/07/19 06:44 AST 89 U/L (15-37) H 05/10/19 07:15 ALT 40 U/L (13-61) 05/10/19 07:15 Alkaline Phosphatase 180 U/L (45-117) H 05/10/19 07:15 LD Total 150 U/L (84-246) 05/10/19 07:15 Creatine Kinase 232 U/L (26-192) H 05/06/19 23:39 Creatine Kinase Index 1.3 % (0.0-5.0) 05/06/19 23:39 CK-MB (CK-2) 3.1 ng/mL (0.5-3.6) 05/06/19 23:39 Troponin I < 0.02 ng/ml (0.00-0.05) 05/06/19 23:39 Total Protein 5.7 g/dl (6.4-8.2) L 05/10/19 07:15 Albumin 2.4 g/dl (3.4-5.0) L 05/10/19 07:15 Vitamin B12 832 pg/ml (193-986) 05/07/19 06:44 Serum Folate 6 ng/mL (3.1-17.5) 05/07/19 06:44 TSH 6.56 uIU/ml (0.358-3.74) H 05/07/19 06:44 Free T4 1.33 ng/dl (0.76-1.46) 05/07/19 06:44 Urine Color Yellow 05/07/19 01:25 Urine Appearance Clear 05/07/19 01:25 Urine pH 5.5 (5.0-8.0) 05/07/19 01:25 Ur Specific [place] 1.015 (1.010-1.035) 05/07/19 01:25 Urine Protein 1+ (NEGATIVE) H 05/07/19 01:25 Urine Glucose (UA) Negative (NEGATIVE) 05/07/19 01:25 Urine Ketones Negative (NEGATIVE) 05/07/19 01:25 Urine Blood 1+ (NEGATIVE) H 05/07/19 01:25 Urine Nitrite Negative (NEGATIVE) 05/07/19 01:25 Urine Bilirubin Negative (NEGATIVE) 05/07/19 01:25 Urine Urobilinogen 1.0 mg/dL (0.2-1.0) 05/07/19 01:25 Ur Leukocyte Esterase Negative (NEGATIVE) 05/07/19 01:25 Urine WBC (Auto) 2 /hpf (0-5) 05/07/19 01:25 Urine RBC (Auto) 1 /hpf (0-4) 05/07/19 01:25 Urine Casts (Auto) 6 /lpf (0-8) 05/07/19 01:25 U Epithel Cells (Auto) 5.3 /HPF (0-5/HPF) 05/07/19 01:25 U Sm Round Cell (Auto) None 05/07/19 01:25 Urine Bacteria (Auto) 0.5 /hpf (NEGATIVE) 05/07/19 01:25 Stool Occult Blood Negative (NEGATIVE) 05/07/19 01:19 Hep A IgM Ab Confirm Negative (Negative) 05/07/19 07:40 Hepatitis A Ab Total Negative (Negative) 05/07/19 07:40 Hep Bs Antigen Negative (Negative) 05/07/19 07:40 Hep Bs Antibody Non reactive (.) 05/07/19 07:40 Hep B Core Total Ab Negative (Negative) 05/07/19 07:40 Hep B Core IgM Ab Negative (Negative) 05/07/19 07:40 Hepatitis Be Antibody Negative (Negative) 05/07/19 07:40 Hepatitis Be Antigen Negative (Negative) 05/07/19 07:40 Blood Type O POSITIVE 05/07/19 06:44 Antibody Screen Negative 05/06/19 23:39 HOSPITAL COURSE: Date of Admission:05/07/19 Date of Discharge: 05/11/19 Minutes to complete discharge: 45 Discharge Summary Problems reviewed: Yes Reason For Visit: SYNCOPE Current Active Problems Back pain (Acute) Bipolar 1 disorder (Acute) CKD (chronic kidney disease) (Acute) HTN (hypertension) (Acute) Hospital Course: 74 y/o/f with PMHx of HTN, COPD, bipolar disorder, hearing loss who presented to the ED from [facility] and assisted living [facility] for back pain, R hip pain and R thigh pain s/p fall with evidence of right frontal scalp edema. Patient has had multiple falls over the last two weeks as per assisted living facility. Patient had imaging done including CT scan head, CT cervical spine, Hep/Pelvis X-rays, CT Pelvis, CT lower extremity which was all negative for fracture, masses, or bleeding. Patient was worked up for syncope vs. fall. Carotid U/S showed <50% stenosis of carotids but patient was evaluated by vascular surgery and there was no need for intervention at this time. Orthostatic vitals were negative. On ECHO patient was found to have severe Mitral Regurg. On initial EKG patient had a QTc of 515 which improved to 491 on repeat EKG. However, Cardio recommended outpatient follow up for the Mitral valve regurg and for serial EKG monitoring 1-2 times a month as patient is on QTc prolonging medications. Patient had elevated kidney function on admission without any known history of CKD. Kidney ultrasound showed echogenic and atrophic kidneys suggestive of chronic kidney disease. Nephrology was consulted and recommended outpatient follow up to evaluate baseline Cr. On labs patient was also found to have macrocytic anemia of unclear etiology (B12, folate normal ). Heme onc was consulted and recommended further workup outpatient. She was noted with elevated TSH and will need outpatient monitoring. Patient's home medications were continued while in the hospital. Follow up was given for Cardiology, Heme/Onc, and nephrology. Patient stable for discharge to SNF. Condition: Stable - Instructions Diet, Activity, Other Instructions: You presented to the hospital after being found on the floor after an unwitnessed fall. You had imaging done of your head, cervical spine, hip, and pelvis which showed no fractures or bleeding. You had an cardiac ultrasound done which showed severe mitral valve regurgitation for which Cardiology recommends outpatient follow up for a repeat ultrasound. You also had an EKG done which showed a prolonged QTc for which cardiology recommended repeat EKGs every 1-2 months for monitoring. Your kidney function was also found to be elevated on admission, you were seen by Nephrology who recommended outpatient follow up. You were found to have anemia during this admission and were seen by Heme/Onc who recommended outpatient follow up as well. Your home medications were continued while in the hospital. Medication changes: 1. Your Rosuvastatin dose was decreased to 5mg daily. Follow up with the following physicians: 1. Please follow up with your primary care provider within one week of discharge as you will need repeat labs of your liver. 2. Follow up with Hematology/Oncology, Dr. Avelar, within one week of discharge for further evaluation of your anemia. 3. Follow up with Dr. Mishra, Nephrology, for your kidney disease and follow up labs. 4. Follow up with Dr. Grace, Cardiology, for further evaluation of your mitral valve regurgitation and EKG monitoring. You will need serial EKG monitoring 1-2 times a month with your doctor and adjustment of your psychiatric medications accordingly. 5. With your psychiatrist to adjust your medications based on EKG readings (and "Qtc interval") 6. Vascular surgery Follow up Dr. Scott (to monitor carotid stenosis), Regular carotid Ultrasound screening FOLLOW UP BLOOD TESTS: CBC, BMP in 1 week Thyroid function tests in 2-3 weeks EKG 1-2 times a month Regular screening carotid Ultrasound to monitor narrowing PENDING BLOOD TESTS: Immune electrophoresis (To be followed with Dr. Mishra on next visit in 1-2 weeks) Flow cytometry (to be followed with Dr. Avelar in 1-2 weeks on next visit) Activity and Diet 1. You are being discharged to a rehab facility to strengthen your muscles. 2. Please continue to monitor your diet as you need to intake less salt and drink plenty of fluids. 3. Please do not use NSAIDs (Ibuprofen, Advil, Motrin etc.) Continue all your other medications as prescribed Please return to the ER if you have any signs or symptoms of chest pain, shortness of breath, uncontrollable fever, chills, nausea, vomiting, numbness, tingling, or weakness in any part of your body, changes in vision, or slurred speech. Please return to the ER if symptoms persist, worsen, or new symptoms arise. Referrals: Micheal Grace MD [Staff Physician] - Franki Scott DO [Staff Physician] - Michael Iyer MD [Primary Care Provider] - Titus Avelar MD [Staff Physician] - Sivan Mishra MD [Staff Physician] - Disposition: [facility] - Home Medications Comprehensive Discharge Medication List: Ambulatory Orders Albuterol Sulfate Inhaler - [Ventolin HFA Inhaler -] 1 puff IH QID 05/06/19 Amlodipine Besylate 5 mg PO DAILY 05/06/19 Aspirin 81 mg PO DAILY 05/06/19 Calcitriol [Calcitriol -] 0.25 mcg PO Q2D 05/06/19 Carvedilol [Coreg -] 12.5 mg PO BID 05/06/19 Fluoxetine HCl 60 mg PO DAILY 05/06/19 Lamotrigine [Lamictal] 200 mg PO DAILY 05/06/19 Olanzapine [Zyprexa -] 5 mg PO DAILY 05/06/19 Sodium Chloride [Nasadrops] 15 ml NS DAILY 05/06/19 Umeclidinium Brm/Vilanterol Tr [Anoro Ellipta 62.5-25 Mcg INH] 1 each IH DAILY 05/06/19 Rosuvastatin [Crestor -] 5 mg PO HS #30 tablet 05/10/19 This patient is new to me today: Yes Date on this admission: 05/11/19 Emergency Visit: Yes ED Registration Date: 05/07/19 Care time: The patient presented to the Emergency Department on the above date and was hospitalized for further evaluation of their emergent condition. Critical Care patient: No - Discharge Referral Referred to [facility] Med P.C.: No
[2019-05-11 15:15] VITALS: BP 128/54; PULSE 64; TEMP 98
[2019-05-13 16:10] LABS: FREE KAPPA,SERUM 113.5 mg/L (3.3-19.4)
== END 2019-05-11 17:00 | DRG 552 ==
LOC: JER 22:38 → JERBED 05-07 03:04 → OBSVTOIN 05-07 04:34 → J4W 05-07 17:30
PROVIDERS: ADMIT Internal Medicine; ATTEND Hospitalist
DX: M54.9 Dorsalgia, unspecified (principal); N17.9 Acute kidney failure, unspecified; J44.9 Chronic obstructive pulmonary disease, unspecified; H91.93 Unspecified hearing loss, bilateral; F31.9 Bipolar disorder, unspecified; R42 Dizziness and giddiness; R55 Syncope and collapse; D63.1 Anemia in chronic kidney disease; I34.0 Nonrheumatic mitral (valve) insufficiency; R94.31 Abnormal electrocardiogram [ECG] [EKG]; I12.9 Hypertensive chronic kidney disease with stage 1 through stage 4 chronic kidney disease, or unspecified chronic kidney disease; N18.3 Chronic kidney disease, stage 3 (moderate); R29.6 Repeated falls; W18.39XA Other fall on same level, initial encounter; Y92.098 Other place in other non-institutional residence as the place of occurrence of the external cause
CPT/HCPCS: 36415; 70450-TC; 71045-TC-FY; 72125-TC; 72192-TC; 73523-TC-FY; 73552-TC-RT-FY; 73700-TC-RT; 76705-TC; 76775-TC; 80053; 81003; 82272; 82550; 82553; 82607; 82728; 82746; 82784; 82977; 83010; 83540; 83550; 83615; 83735; 83883; 84100; 84155; 84165; 84439; 84443; 84484; 84597; 85025; 85027; 85044; 85610; 85730; 86704; 86705; 86706; 86707; 86708; 86709; 86850; 86900; 86901; 87086; 87340; 87350; 93005; 93010; 93306-TC; 93880-TC; 93971-TC; 97116-GP; 97161-GP; 99285-25; G0378; J1644; J7030